=== PATIENT | male | born 1945 | race African-American/Black ===

== ENCOUNTER → 2016-08-31 | Outpatient (CLI) | payer MEDICARE, OTHER ==
[~2016-08-31] MED LIST: ASPIRIN-LOW81 MG PO; ATIVAN1 MG ORAL; AVODART0.5 MG ORAL; BACTRIM-DS1 EA PO; BETOPTIC BOTH EYES; CEPHALEXIN500 MG PO; COLACE100 MG ORAL; COMBIVENT INH14.7 GM INH; COMBIVENT2 PUFFS INH; DEXILANT60 MG ORAL; ENALAPRIL MALEA20 MG ORAL; JANUVIA50 MG ORAL; KLONOPIN0.5 MG ORAL; KLONOPIN0.5 MG PO; LEXAPRO10 MG PO; LEXAPRO20 MG ORAL; LINZESS145 MCG PO; LUMIGAN2.5 ML BOTH EYES; MECLIZINE HCL25 MG ORAL; NIASPAN1000 MG PO; NORVASC10 MG PO; NORVASC5 MG ORAL; PERCOCET 5-3251 EACH ORAL; PLAVIX75 MG PO; QNASL8.7 GM NS; TIMOPTIC 0.5%1 DRO1 BOTH EYES; TOPIRAMATE25 MG ORAL; TRAZODONE HCL150 MG ORAL; TRAZODONE HCL50 MG PO; TRICOR145 MG ORAL; VASOTEC10 MG ORAL; VASOTEC10 MG PO; VICTOZA 2-0.6 MG/0.1 SUBQ; VICTOZA 3-0.6 MG/0.1 SQ; WELCHOL3.75 GM ORAL
--- NOTE | 2016-08-31 12:57 | Diagnostic Imaging Report ---
Indications: Hepatitis C, history of hepatic tumor removal May 2013, followup Technique: Coronal and axial T2-weighted single shot fast spin-echo breath-hold, axial T2-weighted fat-saturated fast spin-echo, 2-D fiesta, dual echo spoiled gradient, and LAVA sequences of the abdomen performed without IV gadolinium administration, latter refused by patient. Findings: Comparison: MRI abdomen without and with gadolinium 10/20/2015 Lack of postgadolinium imaging limits evaluation. Motion artifact degrades images, further limiting evaluation. Small wedge-shaped, peripherally based focus of signal change/parenchymal loss in hepatic segment 8 is unchanged. No new focal areas of signal change are demonstrated within the liver. Circumscribed fluid signal foci again noted in both renal cortices. Bile ducts, gallbladder, pancreas, spleen, adrenal glands, remainder visualized upper abdominal anatomy remain unremarkable in appearance. No abnormally enlarged lymph nodes, other new abnormal masses or fluid collections identified. IMPRESSION: Stable parenchymal scarring hepatic segment 8, evaluation limited by lack of postgadolinium imaging Stable bilateral renal cortical cysts No new abnormality identified
== END | disposition home or self-care (01) ==
LOC: MRI 11:24
DX: B19.20 Unspecified viral hepatitis C without hepatic coma (principal); N28.1 Cyst of kidney, acquired
CPT/HCPCS: 74181

== ENCOUNTER 2016-11-30 12:06 | Outpatient (CLI) | payer MEDICARE, OTHER | END 2016-11-30 13:36 | disposition home or self-care (01) | LOC: CAR 12:06 | DX: I10 Essential (primary) hypertension (principal) | CPT/HCPCS: 93017; 93350 ==

== ENCOUNTER 2017-01-11 10:48 | Outpatient (CLI) | payer MEDICARE, OTHER ==
--- NOTE | 2017-01-11 17:52 | GI Progress Note ---
Assessment/Plan Problems: (1) Hepatitis C ICD Codes: B19.20 - Hepatitis C SNOMED: 01005018 (2) History of colon polyps ICD Codes: Z86.010 - Personal history of colonic polyps SNOMED: 919691858 (3) Abdominal pain (4) Constipation ICD Codes: K59.00 - Constipation SNOMED: 08747793 (5) Dizziness Status: stable Status Narrative Seen with Dr. Smith. Assessment/Plan Hep C Tx in Mar s/p EGD/colon 2015 lab draw: hep C quant recommend Align Anusol HC for internal hemorrhoids Amitiza RTC prn or 3 months. Subjective Subjective constipation >> linzess works, but stool is watery nausea weight gain Objective T 97.8 BP 130/70 P 70 96 RA Laboratory Tests Test 01/11/17 11:00 Hepatitis C Antibody Pending Hepatitis C RNA (PCR) IUs/ml Pending Hepatitis C RNA (PCR) log IUs/ml Pending General Appearance: no apparent distress, alert Cardiovascular: normal rate Respiratory/Chest: normal breath sounds, no respiratory distress Abdominal Exam: normal bowel sounds, non tender, soft Extremities: normal range of motion Jaylin Alves N.P. Jan 11, 2017 17:52
== END 2017-01-11 11:20 | disposition home or self-care (01) ==
LOC: PAN 10:48
DX: B19.20 Unspecified viral hepatitis C without hepatic coma (principal); Z86.010 Personal history of colon polyps; R10.9 Unspecified abdominal pain; K59.00 Constipation, unspecified; R42 Dizziness and giddiness; R11.0 Nausea; R63.5 Abnormal weight gain
CPT/HCPCS: 36415; 87522; G0463; 99211

== ENCOUNTER 2017-06-14 11:09 | Outpatient (CLI) | payer MEDICARE, OTHER ==
[2017-06-14] MEDS ORDERED: AMITIZA24 MCG ORAL (11:20)
[2017-06-14] MEDS ORDERED: VICTOZA 3-0.6 MG/0.1 SQ (11:20)
[2017-06-14 11:24] VITALS: BP 94/56
--- NOTE | 2017-06-14 11:41 | GI Progress Note ---
Assessment/Plan Problems: (1) Hepatitis C ICD Codes: B19.20 - Hepatitis C SNOMED: 19291062 (2) Abdominal pain (3) Dizziness (4) Constipation ICD Codes: K59.00 - Constipation SNOMED: 13546155 (5) Low back pain ICD Codes: M54.5 - Low back pain SNOMED: 467520453 Status: stable Status Narrative Seen with Dr. Smith. Assessment/Plan Hep C Tx in Mar 2006 s/p EGD/colon 2015 lab draw: hep C quant Anusol HC for internal hemorrhoids Amitiza RTC after lab results Subjective Gastrointestinal/Abdominal: Reports: no symptoms Subjective abdominal pain, epigastric - patient eats before going to bed decrease in appetite DM med changed 3 months of Januvia, now Victoza Objective Last 24 Hour Vital Signs Date Time Temp Pulse Resp B/P (MAP) Pulse Ox O2 Delivery O2 Flow Rate FiO2 06/14/17 11:24 97.4 82 18 94/56 95 General Appearance: WD/WN, no apparent distress, alert Cardiovascular: normal rate Respiratory/Chest: normal breath sounds, no respiratory distress Abdominal Exam: normal bowel sounds, non tender, soft Extremities: normal range of motion, non-tender Jaylin Alves N.P. Jun 14, 2017 11:41
[2017-06-14 14:01] LABS: MEAN CORPUSCULAR HEMOGLOBIN 37.4 PG (27.0-31.0); MEAN CORPUSCULAR HGB CONC 33.4 G/DL (32.0-36.0); MEAN CORPUSCULAR VOLUME 112 FL (80-99); MEAN PLATELET VOLUME 5.6 FL (6.5-10.1); PLATELET COUNT 283 K/UL (150-450); RED BLOOD COUNT 3.61 M/UL (4.70-6.10); RED CELL DISTRIBUTION WIDTH 13.1 % (11.6-14.8); WHITE BLOOD COUNT 7.2 K/UL (4.8-10.8)
[2017-06-14 14:13] LABS: ALANINE AMINOTRANSFERASE 17 U/L (12-78); AMYLASE 52 U/L (25-115); ANION GAP 8 mmol/L (5-15); ASPARTATE AMINO TRANSFERASE 17 U/L (15-37); CALCIUM 9.1 MG/DL (8.5-10.1); CARBON DIOXIDE 25 MMOL/L (21-32); CHLORIDE 102 MMOL/L (98-107); CREATININE 1.8 MG/DL (0.55-1.30); LIPASE 251 U/L (73-393); POTASSIUM 4.2 MMOL/L (3.5-5.1); SODIUM 135 MMOL/L (136-145)
[2017-06-14 14:33] LABS: ANISOCYTOSIS 1+; BAND NEUTROPHILS % (MANUAL) 0 % (0-8); BASOPHILS % (MANUAL) 0 % (0-2); EOSINOPHILS % (MANUAL) 1 % (0-3); LYMPHOCYTES % (MANUAL) 32 % (20-45); MACROCYTES 2+; NEUTROPHILS % (MANUAL) 57 % (45-75); PLATELET ESTIMATE ADEQUATE; PLATELET MORPHOLOGY NORMAL; TOTAL CELLS COUNTED 100
[2017-06-20 09:02] LABS: HEPATITIS C QUANT HCV Not Detected IU/mL (.)
== END 2017-06-14 12:05 | disposition home or self-care (01) ==
LOC: PAN 11:09
DX: B19.20 Unspecified viral hepatitis C without hepatic coma (principal); R10.9 Unspecified abdominal pain; R42 Dizziness and giddiness; K59.00 Constipation, unspecified; M54.5 Low back pain; E11.9 Type 2 diabetes mellitus without complications
CPT/HCPCS: 36415; 80053; 82150; 83690; 85007; 85025; 87522; G0463; 99211

== ENCOUNTER 2017-08-02 11:11 | Outpatient (CLI) | payer MEDICARE, OTHER ==
[~2017-08-02 11:11] MED LIST changes: +AMITIZA24 MCG ORAL
[2017-08-02 13:38] VITALS: BP 94/53
--- NOTE | 2017-08-03 15:31 | GI Progress Note ---
Assessment/Plan Problems: (1) Diarrhea ICD Codes: R19.7 - Diarrhea, unspecified SNOMED: 96331163 (2) Hepatitis C ICD Codes: B19.20 - Hepatitis C SNOMED: 66457337 (3) Abdominal pain (4) Dizziness Status: stable Status Narrative Seen with Dr. Smith. Assessment/Plan Hep C s/p Tx >> repeat Hep C quant negative fatty liver gastritis chronic GERD s/p colonoscopy 03/2016 cont plan of care PO hydration RTC if diarrhea persists RTC x 3 months for follow up The patient was seen and examined at bedside and all new and available data was reviewed in the patients chart. I agree with the above findings, impression and plan. (Patient seen earlier today. Signature stamp does not reflect patient encounter time.). - Jasmyn Smith MD Subjective Subjective has had diarrhea x1 day after eating egg salad denies any constipation Objective T 98.1 BP 94/53 74 HR 92 RA WT 241 lbs Blind ambulates with walking stick General Appearance: WD/WN, no apparent distress, alert Cardiovascular: normal rate Respiratory/Chest: normal breath sounds, no respiratory distress Abdominal Exam: normal bowel sounds, non tender, soft Extremities: normal range of motion, non-tender Jaylin Alves N.P. Aug 03, 2017 15:31 DUGLAS SMITH Aug 04, 2017 15:37
== END 2017-08-02 11:45 | disposition home or self-care (01) ==
LOC: PAN 11:11
DX: R19.7 Diarrhea, unspecified (principal); B19.20 Unspecified viral hepatitis C without hepatic coma; R10.9 Unspecified abdominal pain; R42 Dizziness and giddiness; K21.9 Gastro-esophageal reflux disease without esophagitis; K76.0 Fatty (change of) liver, not elsewhere classified; K29.70 Gastritis, unspecified, without bleeding
CPT/HCPCS: 99212

== ENCOUNTER 2017-08-23 14:04 | Inpatient (IN) | payer MEDICARE, OTHER ==
[~2017-08-23] VITALS: Ht 172.7 cm; Wt 109.3 kg
--- NOTE | 2017-08-23 14:45 | Emergency Room Report ---
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 as he had continued pain to the lower chest wall region patient denies any abdominal pain denies any vomiting or diarrhea He mainly complains of the pain Patient also reports that he had some alcoholic drinks over the weekend Denies any focal weakness however the patient is somewhat lethargic with his speech And I do not have any baseline status on this patient Allergies: Coded Allergies: CODEINE (Verified Allergy, Unknown, 05/31/11) Patient History Past Medical History: see triage record Pertinent Family History: none Reviewed Nursing Documentation: PMH: Agreed, PSxH: Agreed Nursing Documentation-PMH Hx Hypertension: Yes Hx Pacemaker: No Hx COPD: Yes Hx Diabetes: Yes Hx Cancer: Yes Hx Gastrointestinal Problems: Yes - liver tumor Hx Neurological Problems: Yes Hx Cerebrovascular Accident: No Hx Transient Ischemic Attacks: No Hx Dementia: No Hx Alzheimer's Disease: No Hx Parkinson's Disease: No Hx Meningitis: No Hx Encephalitis: No Hx Seizures: No Hx Epilepsy: No Hx Multiple Sclerosis: No Hx Cerebral Palsy: No Hx Amyotrophic Lat Sclerosis: No Hx Guillian-[place] Syndrome: No Hx Paralysis: No Hx Peripheral Neuropathy: No Hx Spinal Cord Injury: No Hx Head Trauma: No Hx Traumatic Brain Injury: No Hx Memory Loss: No Hx Concentration Difficulty: No Hx Speech Problem: No Hx Tremors: No Hx Vertigo: No Hx Dizziness: Yes Hx Syncope: No Hx Headaches: Yes Hx Aphasia: No Hx Dysphasia: No Hx Numbness: No Hx Weakness: Yes Hx Fatigue: No Hx Neurologic Surgery: No Hx Brain Shunt: No Review of Systems All Other Systems: limited - Other than the ones mentioned in the history of present illness all others are reviewed however they do stay limited due to the patient's mental status Physical Exam Vital Signs Date Time Temp Pulse Resp B/P (MAP) Pulse Ox O2 Delivery O2 Flow Rate FiO2 08/23/17 14:27 98.4 101 18 58/55 100 Room Air Sp02 EP Interpretation: reviewed, normal, abnormal General Appearance: mild distress Head: normocephalic, atraumatic Eyes: bilateral eye other - trismus ENT: normal pharynx Neck: full range of motion, supple Respiratory: chest non-tender, lungs clear Cardiovascular #1: regular rate, rhythm, no edema Gastrointestinal: non tender, soft Genitourinary: no CVA tenderness Musculoskeletal: normal inspection, other - Patient is tender on palpation and mid back no obvious step-off Neurologic: alert - However patient found to be somewhat lethargic sluggish on his response, responsive, stem assembler III-XII nml as tested Skin: normal color, no rash Lymphatic: no adenopathy Medical Decision Making Diagnostic Impression: Primary Impression: Thoracic spine fracture Additional Impression: Renal insufficiency ER Course Upon presentation the initial blood pressure is reported as 58/53 Blood pressure is repeated at bedside with the patient's nurse Patient's systolic blood pressure is 88 However still significantly low Patient is attempting to provide all his medication was for us patient appears ill Emergently placed on surveillance system monitor and the emergency studies are initiated Patient's blood pressure has improved significantly patient provided with IV hydration CT imaging reveals evidence of thoracic 5 and 6 fractures. given the patient's continued pain patient will require admission and further care Please note that CT imaging had to be done without contrast given the kidney function Labs Test 08/23/17 14:50 08/23/17 15:01 08/23/17 15:30 08/23/17 18:45 Prothrombin Time 11.2 SEC (9.30-11.50) Prothromb Time International Ratio 1.1 (0.9-1.1) Activated Partial Thromboplast Time 20 SEC (23-33) Sodium Level 135 MMOL/L (136-145) Potassium Level 4.1 MMOL/L (3.5-5.1) Chloride Level 100 MMOL/L (98-107) Carbon Dioxide Level 20 MMOL/L (21-32) Anion Gap 15 mmol/L (5-15) Blood Urea Nitrogen 16 mg/dL (7-18) Creatinine 1.8 MG/DL (0.55-1.30) Estimat Glomerular Filtration Rate mL/min (>60) Glucose Level 139 MG/DL (74-106) Lactic Acid Level 2.80 mmol/L (0.66-2.22) 1.40 mmol/L (0.66-2.22) Calcium Level 9.0 MG/DL (8.5-10.1) Total Bilirubin 1.1 MG/DL (0.2-1.0) Direct Bilirubin 0.2 MG/DL (0.0-0.3) Aspartate Amino Transf (AST/SGOT) 48 U/L (15-37) Alanine Aminotransferase (ALT/SGPT) 17 U/L (12-78) Alkaline Phosphatase 31 U/L (46-116) Total Creatine Kinase 353 U/L (26-308) Creatine Kinase MB 1.1 NG/ML (0.0-3.6) Creatine Kinase MB Relative Index 0.3 Troponin I 0.048 ng/mL (0.000-0.056) Pro-B-Type Natriuretic Peptide 179 pg/mL (0-125) Total Protein 7.4 G/DL (6.4-8.2) Albumin 3.7 G/DL (3.4-5.0) Globulin 3.7 g/dL Albumin/Globulin Ratio 1.0 (1.0-2.7) Lipase 79 U/L (73-393) Serum Alcohol 66 mg/dL Urine Color Yellow Urine Appearance Clear Urine pH 6 (4.5-8.0) Urine Specific [place] 1.015 (1.005-1.035) Urine Protein 1+ (NEGATIVE) Urine Glucose (UA) 1+ (NEGATIVE) Urine Ketones 2+ (NEGATIVE) Urine Occult Blood Negative (NEGATIVE) Urine Nitrite Negative (NEGATIVE) Urine Bilirubin Negative (NEGATIVE) Urine Urobilinogen 4 MG/DL (0.0-1.0) Urine Leukocyte Esterase 1+ (NEGATIVE) Urine RBC 0-2 /HPF (0 - 0) Urine WBC 2-4 /HPF (0 - 0) Urine Squamous Epithelial Cells Few /LPF (NONE/OCC) Urine Bacteria Few /HPF (NONE) White Blood Count 6.6 K/UL (4.8-10.8) Red Blood Count 2.75 M/UL (4.70-6.10) Hemoglobin 10.9 G/DL (14.2-18.0) Hematocrit 30.8 % (42.0-52.0) Mean Corpuscular Volume 112 FL (80-99) Mean Corpuscular Hemoglobin 39.7 PG (27.0-31.0) Mean Corpuscular Hemoglobin Concent 35.4 G/DL (32.0-36.0) Red Cell Distribution Width 14.2 % (11.6-14.8) Platelet Count 137 K/UL (150-450) Mean Platelet Volume 7.1 FL (6.5-10.1) Neutrophils (%) (Auto) % (45.0-75.0) Lymphocytes (%) (Auto) % (20.0-45.0) Monocytes (%) (Auto) % (1.0-10.0) Eosinophils (%) (Auto) % (0.0-3.0) Basophils (%) (Auto) % (0.0-2.0) Differential Total Cells Counted 100 Neutrophils % (Manual) 59 % (45-75) Lymphocytes % (Manual) 33 % (20-45) Monocytes % (Manual) 7 % (1-10) Eosinophils % (Manual) 1 % (0-3) Basophils % (Manual) 0 % (0-2) Band Neutrophils 0 % (0-8) Platelet Estimate Decreased Platelet Morphology Normal Hypochromasia 1+ Anisocytosis 1+ Macrocytosis 2+ EKG Diagnostic Results Rate: tachycardiac Rhythm: other ST Segments: no acute changes Rhythm Strip Diag. Results EP Interpretation: yes Rate: 88 Rhythm: NSR, no PVC's, no ectopy Chest X-Ray Diagnostic Results Chest X-Ray Diagnostic Results : Chest X-Ray Ordered: Yes # of Views/Limited/Complete: 1 View Indication: Chest Pain EP Interpretation: Yes Interpretation: no consolidation, no effusion, no pneumothorax, no acute cardiopulmonary disease Impression: No acute disease Electronically Signed by: Socorro Cohen, DO CT/MRI/US Diagnostic Results CT/MRI/US Diagnostic Results : Impression CT chest: Nondisplaced fracture of T5 and T6 bridging osteophytes no retropulsion no pneumothorax Last Vital Signs Date Time Temp Pulse Resp B/P (MAP) Pulse Ox O2 Delivery O2 Flow Rate FiO2 08/23/17 14:27 98.4 101 18 58/55 100 Room Air Status: improved Disposition: ADMITTED INPATIENT Condition: Serious SOCORRO COHEN D.O. Aug 23, 2017 14:44
[2017-08-23 15:00] VITALS: BP 58/55
[2017-08-23 15:14] LABS: APPEARANCE,URINE CLEAR; BILIRUBIN, URINE NEGATIVE (NEGATIVE); GLUCOSE, URINE (UA) 1+ (NEGATIVE); KETONES,URINE 2+ (NEGATIVE); LEUKOCYTE ESTERASE ,URINE 1+ (NEGATIVE); NITRITE,URINE NEGATIVE (NEGATIVE); PH,URINE 6 (4.5-8.0); PROTEIN,URINE 1+ (NEGATIVE); UROBILINOGEN,URINE 4 MG/DL (0.0-1.0)
[2017-08-23 15:20] LABS: COLOR,URINE YELLOW
[2017-08-23 15:25] LABS: ANION GAP 15 mmol/L (5-15); BLOOD UREA NITROGEN 16 mg/dL (7-18); CARBON DIOXIDE 20 MMOL/L (21-32); CHLORIDE 100 MMOL/L (98-107); CREATININE 1.8 MG/DL (0.55-1.30); POTASSIUM 4.1 MMOL/L (3.5-5.1); SODIUM 135 MMOL/L (136-145)
[2017-08-23 15:28] LABS: INR 1.1 (0.9-1.1)
[2017-08-23 15:39] LABS: ALANINE AMINOTRANSFERASE 17 U/L (12-78); ALBUMIN 3.7 G/DL (3.4-5.0); ALKALINE PHOSPHATASE 31 U/L (46-116); ASPARTATE AMINO TRANSFERASE 48 U/L (15-37); BILIRUBIN,TOTAL 1.1 MG/DL (0.2-1.0); CKMB 1.1 NG/ML (0.0-3.6); CREATINE KINASE 353 U/L (26-308)
[2017-08-23 15:46] LABS: BILIRUBIN,DIRECT 0.2 MG/DL (0.0-0.3)
[2017-08-23 15:48] LABS: HEMATOCRIT 30.8 % (42.0-52.0); HEMOGLOBIN 10.9 G/DL (14.2-18.0); MEAN CORPUSCULAR VOLUME 112 FL (80-99); PLATELET COUNT 137 K/UL (150-450); RED BLOOD COUNT 2.75 M/UL (4.70-6.10); RED CELL DISTRIBUTION WIDTH 14.2 % (11.6-14.8); WHITE BLOOD COUNT 6.6 K/UL (4.8-10.8)
[2017-08-23] MEDS ORDERED: Morphine Sulfate 4mg/ml Inj IVP ONE (17:15)
[2017-08-23 19:55] VITALS: BP 118/63
[2017-08-23] MEDS ORDERED: OXYCODONE-ACET1 EAC3 ORAL ×2 (20:24)
[2017-08-23] MEDS ORDERED: VASOTEC10 MG ORAL (20:24)
[2017-08-23] MEDS ORDERED: ENALAPRIL MALEA10 MG ORAL (20:24)
[2017-08-23] MEDS ORDERED: QNASL8.7 GM NS (20:24)
[2017-08-23] MEDS ORDERED: DEXILANT60 MG ORAL (20:24)
[2017-08-23] MEDS ORDERED: BETIMOL5 M2 BOTH EYES (20:24)
[2017-08-23] MEDS ORDERED: COMBIVENT RESPIM4 GM IH (20:24)
[2017-08-23 22:53] VITALS: BP 100/55
[2017-08-24] VITALS: BP 99/67
[2017-08-24] MEDS ORDERED: oxyCODONE HCL/Acetaminophen 5/325mg ORAL PRN (02:15)
[2017-08-24] MEDS ORDERED: Amitiza 24mcg cap ORAL SCH (02:15)
[2017-08-24] MEDS ORDERED: Morphine Sulfate 4mg/ml Inj IVP PRN (02:15)
[2017-08-24 04:00] VITALS: BP 97/60
[2017-08-24 08:00] VITALS: BP 120/72
--- NOTE | 2017-08-24 08:41 | Diagnostic Imaging Report ---
Indication: Chest pain Technique: One view of the chest Comparison: 02/14/2015 Findings: The heart is upper limits normal in size. The medial left hemidiaphragm is not well visualized so retrocardiac parenchymal disease adequately ruled out. The remaining lung pleural spaces are clear. Impression: No definite acute process; retrocardiac consolidation not completely excludable however
[2017-08-24] MEDS ORDERED: Amitiza 24mcg cap ORAL PRN (08:45)
--- NOTE | 2017-08-24 08:49 | History & Physical ---
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 as he had continued pain to the lower chest wall region but denies radiation of pain He mainly complains of the pain and not controlled with outpatient meds Patient also reports that he had some alcoholic drinks over the weekend patient with slow speech scans done and consistent with vertebral fractures Active Medications (reviewed today): PROCTOZONE-HC 2.5 % RECTAL CREAM (HYDROCORTISONE) apply to affected area once daily ESCITALOPRAM OXALATE 10 MG ORAL TABLET (ESCITALOPRAM OXALATE) Take one tablet three times daily TRAZODONE HCL 150 MG ORAL TABLET (TRAZODONE HCL) 1 by mouth nightly at bedtime KLONOPIN 0.5 MG ORAL TABLET (CLONAZEPAM) 1 by mouth twice a day prn AVODART 0.5 MG ORAL CAPSULE (DUTASTERIDE) 1 daily PERCOCET 5-325 MG ORAL TABLET (OXYCODONE-ACETAMINOPHEN) 1 tab daily prn NORVASC 5 MG ORAL TABLET (AMLODIPINE BESYLATE) Take 1 tablet daily QNASL 80 MCG/ACT NASAL AEROSOL SOLUTION (BECLOMETHASONE DIPROP (NASAL)) 1 PUFF BID ISTALOL 0.5 % OPHTHALMIC SOLUTION (TIMOLOL MALEATE) once aday LINZESS 290 MCG ORAL CAPSULE (LINACLOTIDE) 1 po daily ENALAPRIL MALEATE 20 MG ORAL TABLET (ENALAPRIL MALEATE) 1 tab qd TRICOR 145 MG ORAL TABLET (FENOFIBRATE) 1 daily TOPAMAX 25 MG ORAL TABLET (TOPIRAMATE) 1 daily DEXILANT 60 MG ORAL CAPSULE DELAYED RELEASE (DEXLANSOPRAZOLE) 1 daily COMBIVENT RESPIMAT 20-100 MCG/ACT INHALATION AEROSOL SOLUTION (IPRATROPIUM- ALBUTEROL) 1 inhalation q6 Current Allergies (reviewed today): CODEINE (CODEINE SULFATE) (Severe) Past History Past Medical History (reviewed - no changes required): Patient indicates medical history of heart disease, hypertension, type I diabetes. Other medical history includes: renal insufficiency, dyslipidemia, decreased HDL, BPH, degenerative joint disease, blindness, chronic pain, chronic insomnia. THEO. Elevated triglycerides. Vitamin D deficiency. abnormal PET ribidium 03/2010, LIver Tumor, constipation, allergic rhinitis, cough, abdominal pain. HEMORRHOIDS ; DOBUTAMINE ECHO NEGATIVE 2014 hepatitis c (under therapy) Surgical History (reviewed - no changes required): Patient reports surgical history to include: eye surgery-both. Liver tumor removed 03/2016 colonoscopy negative Family History (reviewed - no changes required): Father is . Mother is . The patient indicates family history of hypertension (mother). Other family history includes: Cousin-Diabetes, Mother- Kidney cancer, and uncle ( COLON CANCER) and an aunt with cancer- not sure what kind. tzzfja-diybyseu-[id number] failure; heart disease- Social History (reviewed - no changes required): DON is a disabled.no children ; The patient lives home alone. patient had psychiatric admissions in the past. Risk Factors: Smoked Tobacco Use: Former smoker Cigarettes: Yes -- 1 pack(s) per day, Pack-years: 20 pack years Year started: 1955 Years smoked: 30 Year quit: 1970 Years Since Last Quit: 47 Smokeless Tobacco Use: Never Passive smoke exposure: no Drug use: no HIV high-risk behavior: no Caffeine use: <1 drinks per day Alcohol use: yes Type: once in a while Drinks per day: <1 Seatbelt use: 100 % Sun Exposure: occasionally PHYSICAL 97/60 101 20 98.4 98% WDWN NAD blind clear breath sounds bilaterally without rhonchi or wheeze [id number] without MRG NABS nontender no HSM no CCE unsteady gait pain with ROM Laboratory Tests Test 08/23/17 14:50 08/23/17 15:01 08/23/17 15:30 08/23/17 18:45 Prothrombin Time 11.2 SEC (9.30-11.50) Prothromb Time International Ratio 1.1 (0.9-1.1) Activated Partial Thromboplast Time 20 SEC (23-33) L Sodium Level 135 MMOL/L (136-145) L Potassium Level 4.1 MMOL/L (3.5-5.1) Chloride Level 100 MMOL/L (98-107) Carbon Dioxide Level 20 MMOL/L (21-32) L Anion Gap 15 mmol/L (5-15) Blood Urea Nitrogen 16 mg/dL (7-18) Creatinine 1.8 MG/DL (0.55-1.30) H Estimat Glomerular Filtration Rate mL/min (>60) Glucose Level 139 MG/DL (74-106) H Lactic Acid Level 2.80 mmol/L (0.66-2.22) H 1.40 mmol/L (0.66-2.22) Calcium Level 9.0 MG/DL (8.5-10.1) Total Bilirubin 1.1 MG/DL (0.2-1.0) H Direct Bilirubin 0.2 MG/DL (0.0-0.3) Aspartate Amino Transf (AST/SGOT) 48 U/L (15-37) H Alanine Aminotransferase (ALT/SGPT) 17 U/L (12-78) Alkaline Phosphatase 31 U/L (46-116) L Total Creatine Kinase 353 U/L (26-308) H Creatine Kinase MB 1.1 NG/ML (0.0-3.6) Creatine Kinase MB Relative Index 0.3 Troponin I 0.048 ng/mL (0.000-0.056) Pro-B-Type Natriuretic Peptide 179 pg/mL (0-125) H Total Protein 7.4 G/DL (6.4-8.2) Albumin 3.7 G/DL (3.4-5.0) Globulin 3.7 g/dL Albumin/Globulin Ratio 1.0 (1.0-2.7) Lipase 79 U/L (73-393) Serum Alcohol 66 mg/dL Urine Color Yellow Urine Appearance Clear Urine pH 6 (4.5-8.0) Urine Specific [place] 1.015 (1.005-1.035) Urine Protein 1+ (NEGATIVE) H Urine Glucose (UA) 1+ (NEGATIVE) H Urine Ketones 2+ (NEGATIVE) H Urine Occult Blood Negative (NEGATIVE) Urine Nitrite Negative (NEGATIVE) Urine Bilirubin Negative (NEGATIVE) Urine Urobilinogen 4 MG/DL (0.0-1.0) H Urine Leukocyte Esterase 1+ (NEGATIVE) H Urine RBC 0-2 /HPF (0 - 0) H Urine WBC 2-4 /HPF (0 - 0) Urine Squamous Epithelial Cells Few /LPF (NONE/OCC) Urine Bacteria Few /HPF (NONE) White Blood Count 6.6 K/UL (4.8-10.8) Red Blood Count 2.75 M/UL (4.70-6.10) L Hemoglobin 10.9 G/DL (14.2-18.0) L Hematocrit 30.8 % (42.0-52.0) L Mean Corpuscular Volume 112 FL (80-99) H Mean Corpuscular Hemoglobin 39.7 PG (27.0-31.0) H Mean Corpuscular Hemoglobin Concent 35.4 G/DL (32.0-36.0) Red Cell Distribution Width 14.2 % (11.6-14.8) Platelet Count 137 K/UL (150-450) L Mean Platelet Volume 7.1 FL (6.5-10.1) Neutrophils (%) (Auto) % (45.0-75.0) Lymphocytes (%) (Auto) % (20.0-45.0) Monocytes (%) (Auto) % (1.0-10.0) Eosinophils (%) (Auto) % (0.0-3.0) Basophils (%) (Auto) % (0.0-2.0) Differential Total Cells Counted 100 Neutrophils % (Manual) 59 % (45-75) Lymphocytes % (Manual) 33 % (20-45) Monocytes % (Manual) 7 % (1-10) Eosinophils % (Manual) 1 % (0-3) Basophils % (Manual) 0 % (0-2) Band Neutrophils 0 % (0-8) Platelet Estimate Decreased L Platelet Morphology Normal Hypochromasia 1+ Anisocytosis 1+ Macrocytosis 2+ IMPRESSION S/P FALL Etoh use thoracic verterbal fractures intractable pain CKD COPD blindness diabetes PLAN pain control pain management resume meds monitor blood sugar may need short term rehab impression, plan, and exam edited and reviewed in detail care discussed with TREESA FU Aug 24, 2017 08:49
[2017-08-24] MEDS: Aspirin EC 81mg tab ORAL SCH (08:51)
[2017-08-24] MEDS: Topiramate 25mg tab ORAL SCH ×2 (08:52→17:35)
--- NOTE | 2017-08-24 08:58 | Diagnostic Imaging Report ---
Clinical Indication: Posterior chest pain, status post fall Technique: Spiral acquisitions obtained through the chest. No IV contrast utilized, due to renal insufficiency. Multiplanar reconstructions generated. Total dose length product 1070.82 mGycm. CTDIvol(s) 28.55 mGy. Dose reduction achieved using automated exposure control Comparison: none Findings: There is image degradation due to respiratory motion artifact. A lucency is seen through the bridging osteophytes at T5-6. This could represent a fracture, but could also just represent unfused osteophytes. There is no surrounding soft tissue swelling. No other evidence of acute fracture or significant soft tissue contusion. There are degenerative changes of the thoracic spine The lungs are grossly clear. No infiltrates, effusions, masses, or nodules. There is a 3 mm focus of pleural thickening in the periphery of the left lung and a band of prominent pleural fat in the left midlung periphery. No pneumothorax The heart is upper limits of normal in size. There is abundant pericardial and mediastinal fat. There are coronary artery calcifications. No mediastinal or hilar mass or adenopathy. No axillary or chest wall mass or adenopathy. The thyroid is unremarkable. Limited views of the upper abdominal anatomy demonstrates low hepatic attenuation consistent with fatty change. Impression: Possible fracture bridging osteophytes at T5-6. No acute process otherwise. No other evidence of acute bony trauma, pneumothorax, pulmonary or soft tissue contusion Fatty liver Other incidental findings as described This agrees with the preliminary interpretation provided overnight by [facility] teleradiology service. The CT scanner at [facility] is accredited by the [employer] [place] [employer] and the scans are performed using protocols designed to limit radiation exposure to as low as reasonably achievable to attain images of sufficient resolution adequate for diagnostic evaluation.
[2017-08-24 12:00] VITALS: BP 121/70
[2017-08-24] MEDS: VICTOZA 18 MG/3 ML SUBQ SCH (12:50)
[2017-08-24] MEDS: Morphine Sulfate 4mg/ml Inj IVP PRN (14:58)
[2017-08-24 16:00] VITALS: BP 103/66
--- NOTE | 2017-08-24 16:57 | Consultation ---
History of Present Illness General Date patient seen: Aug 24, 2017 Chief Complaint: Present Illness Allergies: Coded Allergies: CODEINE (Verified Allergy, Unknown, 05/31/11) Medication History Scheduled Amlodipine Besylate (Norvasc), 5 MG ORAL DAILY, (Reported) Aspirin (Aspirin EC), 81 MG PO DAILY, (Reported) Beclomethasone Dipropionate (Qnasl), 1 SPR NS BEDTIME, (Reported) Bimatoprost (Lumigan), 1 DROP BOTH EYES BEDTIME, (Reported) Clonazepam* (Klonopin*), 0.5 MG ORAL QHS, (Reported) Colesevelam Hcl (Welchol), 1 PKT ORAL QHS, (Reported) Dexlansoprazole (Dexilant), 60 MG ORAL DAILY, (Reported) Enalapril Maleate* (Vasotec*), 10 MG ORAL DAILY, (Reported) Escitalopram Oxalate* (Lexapro*), 10 MG ORAL QHS, (Reported) Ipratropium/Albuterol Sulfate (Combivent Respimat Inhal [place]), 2 PUFFS IH BID, (Reported) Liraglutide (Victoza 3-Víctor), 0.6 MG SQ DAILY, (Reported) Lubiprostone (Amitiza*), 24 MCG ORAL PRN, (Reported) Timolol (Betimol), 1 DROP BOTH EYES BEDTIME, (Reported) Topiramate* (Topamax*), 25 MG ORAL TWICE A DAY, (Reported) Trazodone* (Trazodone*), 150 MG ORAL BEDTIME, (Reported) Scheduled PRN Oxycodone Hcl/Acetaminophen 5-325* (Oxycodone-Acetaminophen 5-325*), 0.5 TAB ORAL Q6H PRN for For Pain, (Reported) Discontinued Medications Betaxolol HCl (Betoptic S), 1 DROP BOTH EYES BID, (Reported) Discontinued Reason: Pt stopped taking med Patient History Healthcare decision maker PT Resuscitation status Full Code Advanced Directive on File Physical Exam Last 24 Hour Vital Signs Date Time Temp Pulse Resp B/P (MAP) Pulse Ox O2 Delivery O2 Flow Rate FiO2 08/24/17 12:00 98.2 85 18 121/70 97 Room Air 08/24/17 08:52 120/72 08/24/17 08:52 82 120/72 08/24/17 08:00 98.1 99 20 120/72 98 Room Air 08/24/17 08:00 90 08/24/17 04:00 98.1 101 20 97/60 98 Room Air 08/24/17 04:00 98 08/24/17 00:00 98.2 89 18 99/67 99 Room Air 08/24/17 00:00 130 08/23/17 22:54 98.4 116 18 118/63 100 Room Air 08/23/17 22:53 98.4 89 18 100/55 100 Room Air 08/23/17 19:55 98.4 116 18 118/63 100 Room Air Intake and Output 08/23/17 08/24/17 19:00 07:00 Intake Total 0 ml 200 ml Output Total 0 ml Balance 0 ml 200 ml Intake Oral 0 ml 200 ml Output Urine Total 0 ml Laboratory Tests Test 08/23/17 18:45 Lactic Acid Level 1.40 mmol/L (0.66-2.22) Height (Feet): 5 Height (Inches): 8.00 Weight (Pounds): 241 Medications Current Medications Medications (Trade) Dose Ordered Sig/Janeth Route PRN Reason Start Time Stop Time Status Last Admin Dose Admin Amlodipine Besylate (Norvasc) 5 mg DAILY ORAL 08/24/17 09:00 09/23/17 08:59 08/24/17 08:52 Aspirin (Ecotrin) 81 mg DAILY ORAL 08/24/17 09:00 09/23/17 08:59 08/24/17 08:51 Clonazepam (KlonoPIN) 0.5 mg QHS ORAL 08/24/17 21:00 08/31/17 20:59 Enalapril Maleate (Vasotec) 10 mg DAILY ORAL 08/24/17 09:00 09/23/17 08:59 08/24/17 08:52 Heparin Sodium (Porcine) (Heparin 5000 units/ml) 5,000 units EVERY 12 HOURS SUBQ 08/24/17 21:00 09/23/17 20:59 Lubiprostone (Amitiza) 24 mcg DAILY PRN ORAL CONSTIPATION 08/24/17 08:45 09/23/17 08:44 Morphine Sulfate (Morphine Sulfate) 4 mg Q4H PRN IVP Severe Pain (Pain Scale 7-10) 08/24/17 07:30 08/31/17 02:14 08/24/17 14:58 Oxycodone/ Acetaminophen (Percocet 5-325) 0.5 tab Q6H PRN ORAL Moderate Pain (Pain Scale 4-6) 08/24/17 02:15 08/31/17 02:14 Patient Own Medication (Patient's Own Med) 1 ea DAILY SUBQ 08/24/17 13:00 09/23/17 12:59 08/24/17 12:50 Topiramate (Topamax) 25 mg TWICE A DAY ORAL 08/24/17 09:00 09/23/17 08:59 08/24/17 08:52 Trazodone HCl (Desyrel) 150 mg BEDTIME ORAL 08/24/17 21:00 09/23/17 20:59 Assessment/Plan Assessment/Plan (1) Lumbago (2) Lumbar sprain (3) Intractable back pain (4) S/p fall (5) Thoracic vertebral fracture seen dictated. CHRISTOPHE ABRAHAM Aug 24, 2017 16:57
[2017-08-24] MEDS ORDERED: Cyclobenzaprine 10mg Tab ORAL PRN (17:15)
--- NOTE | 2017-08-24 17:18 | Cardiology Report ---
APPROVED REPORT EKG Measurement Heart [id number] Normal sinus rhythm with sinus arrhythmia Low voltage QRS Borderline ECG
[2017-08-24] MEDS ORDERED: LORazepam Inj 2mg/ml 1ml IV PRN (17:30)
[2017-08-24 20:00] VITALS: BP 110/57
[2017-08-24] MEDS: TraZODone 50mg tab ORAL SCH (21:24)
[2017-08-24] MEDS: clonazePAM 0.5mg tab ORAL SCH (21:24)
[2017-08-24] MEDS: Heparin 5000 units/ml inj SUBQ SCH (21:26)
[2017-08-25] VITALS: BP 111/63
[2017-08-25 04:00] VITALS: BP 112/65
--- NOTE | 2017-08-25 04:16 | Consultation ---
DATE OF CONSULTATION: 08/24/2017 PAIN MANAGEMENT CONSULTATION CONSULTING PHYSICIAN: Cecilio Michaels M.D. ATTENDING/REFERRING PHYSICIAN: Russ Renee M.D. PHYSICIAN [place] BACK FEEDER: Tye Clemens CHIEF COMPLAINT: Back pain. HISTORY OF PRESENT ILLNESS: This is a 72-year-old male, who is being seen on the telemetry floor of [facility] for initial comprehensive pain management consultation. The patient reports that he has been having back pain in the mid back and low back, it is acute and constant, rating it 9/10. Describing the pain as a sharp, stabbing pain. It was increased with movement and nothing has been helping to relieve his pain. Pain exacerbated with fall due to slipping, landing on his back and had been drinking alcohol, vodka, admitted into the hospital. CT scan of the chest was done showing possible fracture bridging osteophytes at C5-C6. Due to this, we were consulted so that the patient would have adequate pain control while here in the hospital. PAST MEDICAL HISTORY: Hypertension, diabetes mellitus, legally blind, and hepatitis C. PAST SURGICAL HISTORY: Liver biopsy. SOCIAL HISTORY: He has a history of smoking tobacco and he is a drinker of alcohol. Denies IV drug abuse. ALLERGIES: Codeine. REVIEW OF SYSTEMS: Denies rash, fever, chills, sweating, dizziness, drowsiness, sore throat, or change in his weight. No shortness of breath, chest pain, palpitations, or cough. No nausea, vomiting, diarrhea, or blood in the stool or urine. No bowel or bladder incontinence. No dysuria. He is complaining of back pain. PHYSICAL EXAMINATION: GENERAL: Alert, awake, and oriented. VITAL SIGNS: Blood pressure 121/70, heart rate is 85, oxygen saturation is 97%, respiratory rate is 18, and temperature is 98.2 degrees Fahrenheit. NECK: Range of motion is full in all directions. No tenderness to paracervical muscles. No adenopathy. LUNGS: Decreased breath sounds bilaterally. HEART: Regular. ABDOMEN: Obese. BACK: Range of motion is decreased in flexion and extension with tenderness to paraspinal muscles, trapezius, and rhomboid muscles. EXTREMITIES: Upper extremity range of motion is full in all directions. Motor is intact. No cyanosis. No clubbing. No edema. Sensory is intact. Reflexes are not obtainable. No adenopathy. Lower extremity range of motion is decreased due to the patient's pain and condition. No cyanosis. No clubbing. No edema. Sensory is intact. Reflexes are not obtainable. No adenopathy. ASSESSMENT AND PLAN: This is a 72-year-old male with lumbago, lumbar strain, thoracic vertebral fracture, intractable back pain, status post fall. The patient will be continued on morphine 4 mg IV every four hours as needed for severe pain as well as Percocet 5/325 mg half a tablet every six hours as needed for moderate pain. He will be started on Lidoderm patch, to be applied to back at the site of the pain, 12 hours on and 12 hours off, as well as Flexeril 10 mg tablet every eight hours as needed for muscle spasm. We will order an MRI of the thoracic and lumbar spine to rule out further pathology in the lower back and thoracic area. The patient was discussed with Dr. Michaels and Dr. Michaels concurred. We will follow the patient. Thank you very much for the courtesy of this consultation. Cecilio Michaels M.D. ILANA Clemens DR: JENNIFER JOB#: [id number] CC:
--- NOTE | 2017-08-25 05:32 | Consultation ---
DATE OF CONSULTATION: CARDIOLOGY CONSULTATION CONSULTING PHYSICIAN: Kam De Luna M.D. REQUESTING PHYSICIAN: Russ Renee M.D. REASON FOR CONSULTATION: Arrhythmia. HISTORY OF PRESENT ILLNESS: This is an male, who presented to the hospital with back pain after sustaining several falls. He denied loss of consciousness. He has had some slow speech and difficulty ambulating due to some alcoholic intake over the weekend. Vertebral compression fractures were noted. Pain control was initiated. Today, the patient developed some episodes of asymptomatic junctional tachycardia, prompting this consultation. I have reviewed the strips. The patient has had some episodes of ectopic atrial rhythms and atrial tachycardia, all asymptomatic. PAST MEDICAL HISTORY: Hemorrhoids, allergic rhinitis, hepatitis C, history of a tumor, status post resection, prostatic hypertrophy, hypertension. SOCIAL HISTORY: Negative for substance abuse. He does have a heavy alcohol intake and smokes one pack of cigarettes daily for over 20 years. FAMILY HISTORY: Notable for heart disease and kidney disease. REVIEW OF SYSTEMS: No complaints of chest pain. No loss of consciousness. He had negative dobutamine echo in 2014. No history of endocarditis or rheumatic heart disease. No history of asthma. No history of blood clotting. PHYSICAL EXAMINATION: VITAL SIGNS: Blood pressure is 110/57, pulse 109, respiratory rate 20, and afebrile. NECK: Supple. LUNGS: Clear. CARDIAC: Regular rhythm. Rapid rate. Normal S1 and S2. There is a fourth heart sound. ABDOMEN: Soft. EXTREMITIES: No edema. LABORATORY DATA: Troponin levels are 0.048 and 0.063 respectively. IMPRESSION: 1. Paroxysmal atrial tachyarrhythmias with episodes of ectopic atrial rhythm. 2. Lactic acidosis, resolved. 3. Hypovolemia and dehydration with acute kidney injury, resolving. 4. Blindness. 5. Alcohol use. 6. Falls. 7. Thoracic vertebral fractures with intractable pain. 8. Chronic obstructive pulmonary disease. 9. Type 2 diabetes mellitus. 10. Acute myocardial ischemia, asymptomatic. PLAN: 1. Continue cardiac monitoring. 2. Check thyroid panel and electrolytes. 3. Serial troponin levels. 4. No current indication for antiarrhythmic therapy or anticoagulation in this setting. Kam De Luna M.D. DR: Umberto JOB#: [id number] CC:
[2017-08-25 08:00] VITALS: BP 129/62
--- NOTE | 2017-08-25 08:17 | General Progress Note ---
Assessment/Plan Assessment/Plan IMPRESSION S/P FALL Etoh use thoracic verterbal fractures intractable pain CKD COPD blindness diabetes abnormal rhythm elevated troponin PLAN cards recommendations pain control pain management resume meds monitor blood sugar follow up with consultants may need short term rehab impression, plan, and exam edited and reviewed in detail care discussed with RN Subjective Allergies: Coded Allergies: CODEINE (Verified Allergy, Unknown, 05/31/11) Subjective pain better overall had change in rhythm troponin elevated cards appreciated Objective Last 24 Hour Vital Signs Date Time Temp Pulse Resp B/P (MAP) Pulse Ox O2 Delivery O2 Flow Rate FiO2 08/25/17 04:12 79 08/25/17 04:00 98.9 82 20 112/65 97 Room Air 08/25/17 00:00 98.0 67 20 111/63 99 Room Air 08/24/17 23:51 71 08/24/17 20:00 98.2 109 20 110/57 98 Room Air 08/24/17 19:54 114 08/24/17 16:00 87 08/24/17 16:00 98.2 85 18 103/66 97 Room Air 08/24/17 12:00 82 08/24/17 12:00 98.2 85 18 121/70 97 Room Air 08/24/17 08:52 120/72 08/24/17 08:52 82 120/72 Intake and Output 08/24/17 08/25/17 19:00 07:00 Intake Total 840 ml Output Total 600 ml 250 ml Balance 240 ml -250 ml Intake Oral 840 ml Output Urine Total 600 ml 250 ml # Voids 4 Laboratory Tests 08/24/17 19:47: Troponin I 0.063H Height (Feet): 5 Height (Inches): 8.00 Weight (Pounds): 241 Objective WDWN NAD blind clear breath sounds bilaterally without rhonchi or wheeze [id number] without MRG NABS nontender no HSM no CCE unsteady gait pain with ROM TERESA HSU Aug 25, 2017 08:17
[2017-08-25] MEDS: Topiramate 25mg tab ORAL SCH ×2 (08:45→17:46)
[2017-08-25] MEDS: Aspirin EC 81mg tab ORAL SCH (08:45)
[2017-08-25] MEDS: Heparin 5000 units/ml inj SUBQ SCH ×2 (08:47→21:28)
[2017-08-25] MEDS: VICTOZA 18 MG/3 ML SUBQ SCH (08:47)
--- NOTE | 2017-08-25 08:51 | General Progress Note ---
Assessment/Plan Assessment/Plan (1) Lumbago (2) Lumbar sprain (3) Intractable back pain (4) S/p fall (5) Thoracic vertebral fracture Patient to be continued on Percocet and Morphine MRI pending D/w Dr. Michaels and he concurred. Subjective Date patient seen: Aug 25, 2017 Time patient seen: 07:30 - am Allergies: Coded Allergies: CODEINE (Verified Allergy, Unknown, 05/31/11) Subjective REVIEW OF SYSTEMS: Denies rash, fever, chills, sweating, dizziness, drowsiness, sore throat, or change in his weight. No shortness of breath, palpitations, or cough. No nausea, vomiting, diarrhea, or blood in the stool or urine. No bowel or bladder incontinence. No dysuria. He is complaining of back pain and chest pain, SUBJECTIVE: Pain has been reduced. MRI is pending to be done later today. He has c/o chest pain being seen by clinical rn manager. Objective Last 24 Hour Vital Signs Date Time Temp Pulse Resp B/P (MAP) Pulse Ox O2 Delivery O2 Flow Rate FiO2 08/25/17 08:45 129/62 08/25/17 08:45 93 129/62 08/25/17 08:00 97.5 93 19 129/62 98 Room Air 08/25/17 04:12 79 08/25/17 04:00 98.9 82 20 112/65 97 Room Air 08/25/17 00:00 98.0 67 20 111/63 99 Room Air 08/24/17 23:51 71 08/24/17 20:00 98.2 109 20 110/57 98 Room Air 08/24/17 19:54 114 08/24/17 16:00 87 08/24/17 16:00 98.2 85 18 103/66 97 Room Air 08/24/17 12:00 82 08/24/17 12:00 98.2 85 18 121/70 97 Room Air 08/24/17 08:52 120/72 08/24/17 08:52 82 120/72 Intake and Output 08/24/17 08/25/17 19:00 07:00 Intake Total 840 ml Output Total 600 ml 250 ml Balance 240 ml -250 ml Intake Oral 840 ml Output Urine Total 600 ml 250 ml # Voids 4 Laboratory Tests 08/24/17 19:47: Troponin I 0.063H Height (Feet): 5 Height (Inches): 8.00 Weight (Pounds): 241 Objective GENERAL: Alert, awake, and oriented. NECK: Range of motion is full in all directions. No tenderness to paracervical muscles. No adenopathy. LUNGS: Decreased breath sounds bilaterally. HEART: Regular. ABDOMEN: Obese. EXTREMITIES: No clubbing. No edema. NEURO: No changes. CHRISTOPHE ABRAHAM Aug 25, 2017 08:51
[2017-08-25] MEDS: Morphine Sulfate 4mg/ml Inj IVP PRN ×2 (11:01→17:50)
[2017-08-25 11:04] LABS: ALANINE AMINOTRANSFERASE 24 U/L (12-78); ALBUMIN 3.5 G/DL (3.4-5.0); ALKALINE PHOSPHATASE 28 U/L (46-116); ANION GAP 8 mmol/L (5-15); ASPARTATE AMINO TRANSFERASE 50 U/L (15-37); BILIRUBIN,TOTAL 0.7 MG/DL (0.2-1.0); BLOOD UREA NITROGEN 14 mg/dL (7-18); CALCIUM 9.3 MG/DL (8.5-10.1); CARBON DIOXIDE 24 MMOL/L (21-32); CHLORIDE 104 MMOL/L (98-107); CREATININE 1.6 MG/DL (0.55-1.30); SODIUM 136 MMOL/L (136-145)
[2017-08-25 12:00] VITALS: BP 113/67
[2017-08-25 16:00] VITALS: BP 100/67
--- NOTE | 2017-08-25 19:39 | Diagnostic Imaging Report ---
Indication: Reason For Exam: PAIN Technique: Sagittal T1 and T2 fast spin echo, sagittal STIR, axial T1 and T2 fast spin-echo images of the lumbar spine Comparison: Correlation made to CT of the chest 08/23/2017 Findings: There are 5 lumbar-type nonrib-bearing vertebral bodies, assuming 12 paired ribs. There is no abnormal lumbar curvature. Tip of the pelvis terminates at the level of T12-L1. There is no focal cord signal abnormality. Bone marrow signal is homogeneous and within normal limits. There is no evidence of acute fracture or traumatic malalignment. No evidence of spondylolisthesis. There is mild multilevel degenerative change with large anterior osteophytes, multilevel disc desiccation and small disc osteophyte complexes. At T12-L1: There is no evidence of central calcinosis or foraminal narrowing. At L1-L2: Mild disc osteophyte complex and ligamentum flavum hypertrophy results in moderate central canal stenosis. There is no significant foraminal narrowing. At L2-L3: There is no significant central canal stenosis or foraminal narrowing. At L3-L4: Disc osteophyte complex and hypertrophy of the ligamentum flavum results in mild central canal stenosis and mild bilateral foraminal narrowing. At L4-L5: Disc osteophyte complex results in mild central canal stenosis and bilateral foraminal narrowing. At L5-S1 there is mild central canal stenosis and possible mild left foraminal narrowing. Abdominal aorta is normal in caliber. Multiple T2 hyperintense well-circumscribed lesions noted in the left kidney likely representing cysts. IMPRESSION: No evidence of acute fracture or traumatic malalignment. Mild multilevel degenerative change of the lumbar spine.
[2017-08-25 20:00] VITALS: BP 141/77
[2017-08-25] MEDS: clonazePAM 0.5mg tab ORAL SCH (21:25)
[2017-08-25] MEDS: TraZODone 50mg tab ORAL SCH (21:29)
[2017-08-26] VITALS (7 sets, daily range): BP systolic 102–122; BP diastolic 58–85
--- NOTE | 2017-08-26 03:45 | Progress Note ---
DATE: 08/25/2017 CARDIOLOGY PROGRESS NOTE SUBJECTIVE: The patient has no new complaints. Monitored rhythm with asymptomatic episodes of atrial arrhythmias that are nonsustained. OBJECTIVE: VITAL SIGNS: Blood pressure 112/65, pulse 82, and respirations 20. LUNGS: Clear. CARDIAC: Regular. ABDOMEN: Soft. EXTREMITIES: No edema. LABORATORY DATA: Troponin level 0.041. A 2D echocardiogram revealed normal ejection fraction with mild concentric hypertrophy. IMPRESSION: 1. Status post mechanical fall. 2. Alcohol use 3. Acute thoracic vertebral fractures with intractable pain. 4. Troponin elevation of no clinical significance. 5. Atrial arrhythmias of no clinical significance. 6. Chronic obstructive pulmonary disease, stable. 7. Diabetes, on sliding scale of insulin. PLAN: 1. Continue cardiac monitoring. 2. Pain control. 3. DVT prophylaxis. 4. Anti-platelet therapy. 5. Check lipid panel. LDL goal less than 100. 6. With low BP range, will try to consolidate anti-HTN meds. Kam De Luna M.D. DR: ANUP JOB#: [id number] CC: RALPH
--- NOTE | 2017-08-26 06:32 | Cardiology Report ---
APPROVED REPORT EXAM: Two-dimensional and M-mode echocardiogram with Doppler and color Doppler. INDICATION Arrhythmia M-Mode DIMENSIONS IVSd1.0 (0.7-1.1cm)Left Atrium (MM)3.0 (1.6-4.0cm) LVDd5.4 (3.5-5.6cm)Aortic Root3.2 (2.0-3.7cm) PWd1.0 (0.7-1.1cm)Aortic Cusp Exc.2.0 (1.5-2.0cm) LVDs3.8 (2.5-4.0cm) PWs1.4 cm Normal left ventricular chamber size, systolic function and wall motion. Left ventricular ejection fraction estimated to be 60-65%. No evidence of left ventricular hypertrophy. Small posterior and anterior pericardial effusion. Mild bi-atrial enlargement by 2D. Focal aortic valve sclerosis with adequate cusp excursion. Thickened mitral valve leaflets with normal excursion. Mild mitral annulus and aortic root calcification. Pulmonic valve not well visualized. Normal tricuspid valve structure. IVC is not obtainable. A color flow and spectral Doppler study was performed and revealed: No aortic regurgitation. No mitral regurgitation. Mitral diastolic velocities suggest reduced left ventricular relaxation c/w diastolic dysfunction grade 1. No tricuspid regurgitation.
--- NOTE | 2017-08-26 08:18 | General Progress Note ---
Assessment/Plan Assessment/Plan IMPRESSION S/P FALL Etoh use thoracic verterbal fractures intractable pain CKD COPD blindness diabetes abnormal rhythm elevated troponin PLAN cards recommendations noted pain control pain management noted meds monitor blood sugar follow up with consultants may need short term rehab impression, plan, and exam edited and reviewed in detail care discussed with RN Subjective Allergies: Coded Allergies: CODEINE (Verified Allergy, Unknown, 05/31/11) Subjective pain better overall had change in rhythm troponin elevated lumbar MRI cards appreciated Objective Last 24 Hour Vital Signs Date Time Temp Pulse Resp B/P (MAP) Pulse Ox O2 Delivery O2 Flow Rate FiO2 08/26/17 04:00 99.3 20 122/71 95 Room Air 08/26/17 04:00 87 08/26/17 00:00 99.0 20 120/79 96 Room Air 08/26/17 00:00 85 08/25/17 20:00 85 08/25/17 20:00 98.8 20 141/77 97 Room Air 08/25/17 16:00 84 08/25/17 16:00 98.1 80 20 100/67 97 Room Air 08/25/17 12:00 97.9 88 22 113/67 96 Room Air 08/25/17 12:00 96 08/25/17 08:45 129/62 08/25/17 08:45 93 129/62 Intake and Output 08/25/17 08/26/17 19:00 07:00 Intake Total 940 ml 240 ml Balance 940 ml 240 ml Intake Oral 740 ml 240 ml IV Total 200 ml # Voids 3 1 # Bowel Movements 1 2 Laboratory Tests 08/25/17 09:40: Sodium Level 136, Potassium Level 4.0, Chloride Level 104, Carbon Dioxide Level 24, Anion Gap 8, Blood Urea Nitrogen 14, Creatinine 1.6H, Estimat Glomerular Filtration Rate , Glucose Level 117H, Calcium Level 9.3, Magnesium Level 1.5L, Total Bilirubin 0.7, Aspartate Amino Transf (AST/SGOT) 50H, Alanine Aminotransferase (ALT/SGPT) 24, Alkaline Phosphatase 28L, Troponin I 0.041, Pro- B-Type Natriuretic Peptide 125, Total Protein 7.0, Albumin 3.5, Globulin 3.5, Albumin/Globulin Ratio 1.0, Thyroid Stimulating Hormone (TSH) 1.142 Height (Feet): 5 Height (Inches): 8.00 Weight (Pounds): 241 Objective WDWN NAD blind clear breath sounds bilaterally without rhonchi or wheeze [id number] without MRG NABS nontender no HSM no CCE unsteady gait pain with ROM TERESA HSU Aug 26, 2017 08:18
--- NOTE | 2017-08-26 09:20 | General Progress Note ---
Assessment/Plan Assessment/Plan (1) Lumbago (2) Lumbar sprain (3) Intractable back pain (4) S/p fall (5) Thoracic vertebral fracture (6) Lumbar spinal stenosis Patient to be continued on Percocet and Morphine MRI thoracic spine pending. Recommend spinal surgeon consultation D/w Dr. Michaels and he concurred. Subjective Date patient seen: Aug 26, 2017 Time patient seen: 08:30 - am Allergies: Coded Allergies: CODEINE (Verified Allergy, Unknown, 05/31/11) Subjective REVIEW OF SYSTEMS: Denies rash, fever, chills, sweating, dizziness, drowsiness, sore throat, or change in his weight. No shortness of breath, palpitations, or cough. No nausea, vomiting, diarrhea, or blood in the stool or urine. No bowel or bladder incontinence. No dysuria. He is complaining of back pain and chest pain, SUBJECTIVE: Pt is sitting up in bed and reports pain is at a moderate level and increases with movement. However it has been tolerated on the Morphine and Percocet. MRI of Lumbar spine reviewed and thoracic spine pending results. Objective Last 24 Hour Vital Signs Date Time Temp Pulse Resp B/P (MAP) Pulse Ox O2 Delivery O2 Flow Rate FiO2 08/26/17 08:00 96.2 92 18 120/85 95 08/26/17 04:00 99.3 20 122/71 95 Room Air 08/26/17 04:00 87 08/26/17 00:00 99.0 20 120/79 96 Room Air 08/26/17 00:00 85 08/25/17 20:00 85 08/25/17 20:00 98.8 20 141/77 97 Room Air 08/25/17 16:00 84 08/25/17 16:00 98.1 80 20 100/67 97 Room Air 08/25/17 12:00 97.9 88 22 113/67 96 Room Air 08/25/17 12:00 96 Intake and Output 08/25/17 08/26/17 19:00 07:00 Intake Total 940 ml 240 ml Balance 940 ml 240 ml Intake Oral 740 ml 240 ml IV Total 200 ml # Voids 3 1 # Bowel Movements 1 2 Laboratory Tests 08/25/17 09:40: Sodium Level 136, Potassium Level 4.0, Chloride Level 104, Carbon Dioxide Level 24, Anion Gap 8, Blood Urea Nitrogen 14, Creatinine 1.6H, Estimat Glomerular Filtration Rate , Glucose Level 117H, Calcium Level 9.3, Magnesium Level 1.5L, Total Bilirubin 0.7, Aspartate Amino Transf (AST/SGOT) 50H, Alanine Aminotransferase (ALT/SGPT) 24, Alkaline Phosphatase 28L, Troponin I 0.041, Pro- B-Type Natriuretic Peptide 125, Total Protein 7.0, Albumin 3.5, Globulin 3.5, Albumin/Globulin Ratio 1.0, Thyroid Stimulating Hormone (TSH) 1.142 Height (Feet): 5 Height (Inches): 8.00 Weight (Pounds): 241 Objective GENERAL: Alert, awake, and oriented. NECK: Range of motion is full in all directions. No tenderness to paracervical muscles. No adenopathy. LUNGS: Decreased breath sounds bilaterally. HEART: Regular. ABDOMEN: Obese. EXTREMITIES: No clubbing. No edema. NEURO: No changes. Procedure: MRI L Spine no Contrast Findings: There are 5 lumbar-type nonrib-bearing vertebral bodies, assuming 12 paired ribs. There is no abnormal lumbar curvature. Tip of the conus terminates at the level of T12-L1. There is no focal cord signal abnormality. Bone marrow signal is homogeneous and within normal limits. There is no evidence of acute fracture or traumatic malalignment. No evidence of spondylolisthesis. There is multilevel degenerative change with large anterior osteophytes, multilevel disc desiccation and small disc osteophyte complexes. There is evidence of mild epidural lipomatosis. At T12-L1: There is no evidence of central canal stenosis or foraminal narrowing. At L1-L2: Mild disc osteophyte complex and ligamentum flavum hypertrophy as well as epidural lipomatosis results in moderate central canal stenosis. There is no significant foraminal narrowing. At L2-L3: Hypertrophy of ligamentum flavum, epidural lipomatosis and small disc bulge results in mild central canal stenosis. No intervening foraminal narrowing at this level. At L3-L4: Disc osteophyte complex, epidural lipomatosis and hypertrophy of ligamentum flavum result in severe central canal stenosis. There is mild bilateral foraminal narrowing. At L4-L5: Disc osteophyte complex, hypertrophy of ligamentum flavum and epidural lipomatosis results in moderate to severe central canal stenosis. There is mild foraminal narrowing. At L5-S1: There is moderate central canal stenosis and foraminal narrowing. CHRISTOPHE ABRAHAM Aug 26, 2017 09:20
[2017-08-26] MEDS: Topiramate 25mg tab ORAL SCH ×2 (09:49→17:51)
[2017-08-26] MEDS: Aspirin EC 81mg tab ORAL SCH (09:49)
[2017-08-26] MEDS: Heparin 5000 units/ml inj SUBQ SCH ×2 (09:52→20:44)
[2017-08-26] MEDS: Morphine Sulfate 4mg/ml Inj IVP PRN ×2 (10:11→20:10)
[2017-08-26] MEDS: VICTOZA 18 MG/3 ML SUBQ SCH (10:52)
--- NOTE | 2017-08-26 13:09 | Diagnostic Imaging Report ---
Indication: Intractable back pain Technique: Sagittal T1 fast spin echo, sagittal T2 fast echo, sagittal STIR, axial T2 fast spin echo images were obtained through the thoracic spine Comparison: Reference made to chest CT dated 08/23/2017 Findings: The vertebral body heights are preserved. The vertebral body marrow signal is normal. The disc spaces are preserved. There is fairly extensive degenerative proliferative changes of the thoracic spine, better appreciated on the recent CT At T5-6, there is high signal within the disc. There is some edema of the paraspinous soft tissues on the left, best appreciated on the sagittal STIR images. At the remaining disc levels, disc signal is either normal or demonstrates desiccation. At the T2-3 level, there is high signal within the cord which is eccentric to the right of midline. This extends for a length of about 16 mm. There is extensive posterior epidural fat in the mid thoracic spine. This results in jjed-sp-[id number] narrowing of the spinal canal in the mid thoracic spine, most notably at the T5-6 level, where the spinal canal is narrowed to about 8 mm minimum AP dimension. The cord does not appear to be frankly compressed but very little CSF is seen surrounding at this level. The right T2-3 neural foramen is nearly completely obliterated by osteophytes. The remaining neural foramina are preserved. There is no significant disc bulge or protrusion Impression: Positive for myelomalacia of indeterminate etiology at the level of T2-3. High disc signal and surrounding soft tissue edema at T5-6, presumably related to osteophyte fracture described on recent chest CT Fairly extensive epidural lipomatosis in the mid thoracic spine, most striking at the T5-6 level and causing [id number]-[id number] spinal stenosis at this level. Near complete obliteration by osteophytes of the right T2-3 neural foramen No significant disc bulge or protrusion is demonstrated. No other acute bony trauma
--- NOTE | 2017-08-26 16:42 | Cardiology Report ---
APPROVED REPORT EKG Measurement Heart [id number] Sinus rhythm with premature atrial complexes Otherwise normal ECG
[2017-08-26] MEDS: TraZODone 50mg tab ORAL SCH (20:43)
[2017-08-26] MEDS: clonazePAM 0.5mg tab ORAL SCH (20:43)
[2017-08-27] VITALS (7 sets, daily range): BP systolic 88–123; BP diastolic 55–72
--- NOTE | 2017-08-27 01:15 | Progress Note ---
DATE: 08/26/2017 CARDIOLOGY PROGRESS NOTE SUBJECTIVE: The patient still continues to have pain. Low-grade temperatures noted. Mobility is impaired. Cardiac rhythm remains sinus with rare atrial ectopics. No sustained junctional rhythm. OBJECTIVE: Good breath sounds. HEART: Regular rhythm and rate. Normal S1, S2. ABDOMEN: Soft. EXTREMITIES: Edema. Gait unsteady. Range of motion impaired due to pain. LABORATORY DATA: No new laboratories. IMPRESSION: 1. Mechanical fall. 2. History of alcohol use. 3. Thoracic vertebral fractures. 4. Intractable pain. 5. Insignificant troponin bump. 6. Clinically, insignificant cardiac arrhythmia. PLAN: 1. Recheck laboratory studies. 2. Mobilization with pain control. 3. Maintain current cardiovascular regimen. 4. Avoid tight blood pressure control and orthostasis in this clinical setting. Kam De Luna M.D. DR: ANUP JOB#: [id number] CC:
[2017-08-27] MEDS ORDERED: oxyCODONE HCL/Acetaminophen 5/325mg ORAL PRN (02:15)
[2017-08-27] MEDS: Morphine Sulfate 4mg/ml Inj IVP PRN ×4 (08:17→22:34)
--- NOTE | 2017-08-27 08:46 | General Progress Note ---
Assessment/Plan Assessment/Plan IMPRESSION S/P FALL Etoh use thoracic vertebral fractures intractable pain CKD COPD blindness diabetes abnormal rhythm elevated troponin PLAN cards recommendations noted pain control pain management noted meds monitor blood sugar follow up with consultants dc planning with [facility] impression, plan, and exam edited and reviewed in detail care discussed with RN Subjective Allergies: Coded Allergies: CODEINE (Verified Allergy, Unknown, 05/31/11) Subjective pain better overall wants to go home tuesday does not want rehab Objective Last 24 Hour Vital Signs Date Time Temp Pulse Resp B/P (MAP) Pulse Ox O2 Delivery O2 Flow Rate FiO2 08/27/17 04:00 97.9 83 18 117/66 97 Room Air 08/27/17 00:00 98.1 81 20 121/72 98 Room Air 08/26/17 20:00 98.2 79 20 121/78 98 Room Air 08/26/17 16:00 98.6 96 19 106/84 96 08/26/17 16:00 83 08/26/17 12:00 80 08/26/17 12:00 97.4 79 17 102/58 97 08/26/17 09:50 120/85 08/26/17 09:50 92 120/85 Intake and Output 08/26/17 08/27/17 19:00 07:00 Intake Total 600 ml Output Total 800 ml Balance -200 ml Intake Oral 600 ml Output Urine Total 800 ml # Voids 1 1 Height (Feet): 5 Height (Inches): 8.00 Weight (Pounds): 241 Objective WDWN NAD blind clear breath sounds bilaterally without rhonchi or wheeze [id number] without MRG NABS nontender no HSM no CCE unsteady gait pain with ROM TERESA HSU Aug 27, 2017 08:46
[2017-08-27] MEDS: Heparin 5000 units/ml inj SUBQ SCH ×2 (09:00→21:00)
[2017-08-27] MEDS ORDERED: Amitiza 24mcg cap ORAL PRN (09:00)
[2017-08-27] MEDS: Aspirin EC 81mg tab ORAL SCH (09:06)
[2017-08-27] MEDS: Topiramate 25mg tab ORAL SCH ×2 (09:06→17:54)
[2017-08-27] MEDS: VICTOZA 18 MG/3 ML SUBQ SCH (09:07)
[2017-08-27 11:17] LABS: HEMATOCRIT 28.3 % (42.0-52.0); HEMOGLOBIN 9.9 G/DL (14.2-18.0); MEAN CORPUSCULAR VOLUME 114 FL (80-99); PLATELET COUNT 132 K/UL (150-450); RED BLOOD COUNT 2.48 M/UL (4.70-6.10); RED CELL DISTRIBUTION WIDTH 14.9 % (11.6-14.8); WHITE BLOOD COUNT 5.2 K/UL (4.8-10.8)
[2017-08-27 11:38] LABS: ALANINE AMINOTRANSFERASE 23 U/L (12-78); ALBUMIN 3.2 G/DL (3.4-5.0); ALBUMIN/GLOBULIN RATIO 0.9 (1.0-2.7); ALKALINE PHOSPHATASE 30 U/L (46-116); ANION GAP 5 mmol/L (5-15); ASPARTATE AMINO TRANSFERASE 35 U/L (15-37); BILIRUBIN,TOTAL 0.4 MG/DL (0.2-1.0); BLOOD UREA NITROGEN 12 mg/dL (7-18); CALCIUM 9.2 MG/DL (8.5-10.1); CARBON DIOXIDE 26 MMOL/L (21-32); CHLORIDE 105 MMOL/L (98-107); CREATININE 1.6 MG/DL (0.55-1.30); POTASSIUM 4.3 MMOL/L (3.5-5.1); SODIUM 136 MMOL/L (136-145)
[2017-08-27] MEDS ORDERED: D5 1/2NS 1000ml IV ONE (16:18)
[2017-08-27] MEDS ORDERED: Tubing IV Secondary IV ONE (16:18)
[2017-08-27] MEDS ORDERED: NS 275ml ONE (16:18)
[2017-08-27] MEDS ORDERED: Cyclobenzaprine 10mg Tab ORAL PRN (17:15)
[2017-08-27] MEDS: clonazePAM 0.5mg tab ORAL SCH (21:23)
[2017-08-27] MEDS: TraZODone 50mg tab ORAL SCH (21:23)
[2017-08-28 00:06] VITALS: BP 105/64
--- NOTE | 2017-08-28 01:45 | Progress Note ---
DATE: 08/27/2017 CARDIOLOGY PROGRESS NOTE SUBJECTIVE: The patient continues to have pain. He has improved. He did not want to pursue rehabilitation at the facility. No shortness of breath noted. OBJECTIVE: VITAL SIGNS: Blood pressure 117/66, pulse 83, and respirations 18. NECK: Supple. LUNGS: Clear. CARDIAC: Regular. Normal S1 and S2 with a fourth heart sound. ABDOMEN: Soft. EXTREMITIES: No edema. LABORATORY DATA: White count 5.3 and hemoglobin 9.9. Potassium 4.3, BUN 12, and creatinine 1.6. Albumin 3.2. IMPRESSION: 1. Mechanical fall. 2. Thoracic vertebral fractures. 3. Intractable pain, improved. 4. Insignificant elevation of troponin with no signs of acute coronary insufficiency. 5. Transient atrial and junctional arrhythmias of no clinical significance. PLAN: 1. No additional cardiovascular studies presently indicated. 2. Continue observation on current cardiovascular medications. 3. Observe for orthostasis with pain medications. Kam De Luna M.D. DR: ANUP JOB#: [id number] CC:
[2017-08-28 04:00] VITALS: BP 112/64
[2017-08-28 08:00] VITALS: BP 102/63
[2017-08-28] MEDS: Morphine Sulfate 4mg/ml Inj IVP PRN ×3 (08:27→22:10)
[2017-08-28] MEDS: Topiramate 25mg tab ORAL SCH ×2 (08:49→17:13)
[2017-08-28] MEDS: Heparin 5000 units/ml inj SUBQ SCH ×2 (08:50→21:00)
[2017-08-28] MEDS: Aspirin EC 81mg tab ORAL SCH (08:50)
--- NOTE | 2017-08-28 08:58 | General Progress Note ---
Assessment/Plan Assessment/Plan IMPRESSION S/P FALL Etoh use thoracic vertebral fractures intractable pain CKD COPD blindness diabetes abnormal rhythm elevated troponin spinal stenosis PLAN cards recommendations noted and clearance noted pain control pain management noted meds monitor blood sugar follow up with consultants dc planning with [facility] in am impression, plan, and exam edited and reviewed in detail care discussed with RN Subjective Allergies: Coded Allergies: CODEINE (Verified Allergy, Unknown, 05/31/11) Subjective pain better overall wants to go home in am does not want rehab Objective Last 24 Hour Vital Signs Date Time Temp Pulse Resp B/P (MAP) Pulse Ox O2 Delivery O2 Flow Rate FiO2 08/28/17 08:50 Room Air 08/28/17 08:26 103/62 08/28/17 08:00 97.7 86 20 102/63 100 08/28/17 04:00 97.9 76 18 112/64 98 Room Air 08/28/17 00:06 97.9 76 18 105/64 98 08/27/17 20:54 97.9 70 18 107/62 98 08/27/17 17:54 117/67 08/27/17 16:06 98.0 79 21 117/67 98 Room Air 08/27/17 12:15 123/62 08/27/17 11:55 97.6 86 20 88/55 95 08/27/17 09:00 93/64 Intake and Output 08/27/17 08/28/17 19:00 07:00 Intake Total 960 ml 360 ml Output Total 600 ml Balance 360 ml 360 ml Intake Oral 960 ml 360 ml Output Urine Total 600 ml # Voids 1 2 Laboratory Tests 08/27/17 10:59: White Blood Count 5.2, Red Blood Count 2.48L, Hemoglobin 9.9L, Hematocrit 28.3L , Mean Corpuscular Volume 114H, Mean Corpuscular Hemoglobin 39.9H, Mean Corpuscular Hemoglobin Concent 35.0, Red Cell Distribution Width 14.9H, Platelet Count 132L, Mean Platelet Volume 5.9L, Neutrophils (%) (Auto) , Lymphocytes (%) (Auto) , Monocytes (%) (Auto) , Eosinophils (%) (Auto) , Basophils (%) (Auto) , Differential Total Cells Counted 100, Neutrophils % ( Manual) 36L, Lymphocytes % (Manual) 60H, Monocytes % (Manual) 4, Eosinophils % ( Manual) 0, Basophils % (Manual) 0, Band Neutrophils 0, Platelet Estimate DecreasedL, Platelet Morphology Normal, Hypochromasia 1+, Macrocytosis 2+, Spherocytes 1+, Sodium Level 136, Potassium Level 4.3, Chloride Level 105, Carbon Dioxide Level 26, Anion Gap 5, Blood Urea Nitrogen 12, Creatinine 1.6H, Estimat Glomerular Filtration Rate , Glucose Level 100, Calcium Level 9.2, Total Bilirubin 0.4, Aspartate Amino Transf (AST/SGOT) 35, Alanine Aminotransferase (ALT/SGPT) 23, Alkaline Phosphatase 30L, Total Protein 6.6, Albumin 3.2L, Globulin 3.4, Albumin/Globulin Ratio 0.9L Height (Feet): 5 Height (Inches): 8.00 Weight (Pounds): 241 Objective WDWN NAD blind clear breath sounds bilaterally without rhonchi or wheeze [id number] without MRG NABS nontender no HSM no CCE unsteady gait pain with ROM TERESA HSU Aug 28, 2017 08:58
[2017-08-28] MEDS: VICTOZA 18 MG/3 ML SUBQ SCH (09:37)
[2017-08-28 12:00] VITALS: BP 115/59
--- NOTE | 2017-08-28 12:26 | General Progress Note ---
Assessment/Plan Assessment/Plan (1) Lumbago (2) Lumbar sprain (3) Intractable back pain (4) S/p fall (5) Thoracic vertebral fracture (6) Lumbar spinal stenosis (7) Thoracic spinal stenosis Patient to be continued on Percocet and Morphine D/w Dr. Michaels and he concurred. Subjective Date patient seen: Aug 28, 2017 Time patient seen: 10:15 - am Allergies: Coded Allergies: CODEINE (Verified Allergy, Unknown, 05/31/11) Subjective REVIEW OF SYSTEMS: Denies rash, fever, chills, sweating, dizziness, drowsiness, sore throat, or change in his weight. No shortness of breath, palpitations, or cough. No nausea, vomiting, diarrhea, or blood in the stool or urine. No bowel or bladder incontinence. No dysuria. He is complaining of back pain and chest pain, SUBJECTIVE: Pt laying on bed showing no signs of pain or distress. MRI of thoracic spine reviewed. Pain is tolerated on the Morphine and percocet. Objective Last 24 Hour Vital Signs Date Time Temp Pulse Resp B/P (MAP) Pulse Ox O2 Delivery O2 Flow Rate FiO2 08/28/17 08:57 97.9 08/28/17 08:50 Room Air 08/28/17 08:26 103/62 08/28/17 08:00 97.7 86 20 102/63 100 08/28/17 04:00 97.9 76 18 112/64 98 Room Air 08/28/17 00:06 97.9 76 18 105/64 98 08/27/17 20:54 97.9 70 18 107/62 98 08/27/17 17:54 117/67 08/27/17 16:06 98.0 79 21 117/67 98 Room Air Intake and Output 08/27/17 08/28/17 19:00 07:00 Intake Total 960 ml 360 ml Output Total 600 ml Balance 360 ml 360 ml Intake Oral 960 ml 360 ml Output Urine Total 600 ml # Voids 1 2 Height (Feet): 5 Height (Inches): 8.00 Weight (Pounds): 241 Objective GENERAL: Alert, awake, and oriented. NECK: Range of motion is full in all directions. No tenderness to paracervical muscles. No adenopathy. LUNGS: Decreased breath sounds bilaterally. HEART: Regular. ABDOMEN: Obese. EXTREMITIES: No clubbing. No edema. NEURO: No changes. Procedure: MRI T Spine no Contrast Findings: The vertebral body heights are preserved. The vertebral body marrow signal is normal. The disc spaces are preserved. There is fairly extensive degenerative proliferative changes of the thoracic spine, better appreciated on the recent CT At T5-6, there is high signal within the disc. There is some edema of the paraspinous soft tissues on the left, best appreciated on the sagittal STIR images. At the remaining disc levels, disc signal is either normal or demonstrates desiccation. At the T2-3 level, there is high signal within the cord which is eccentric to the right of midline. This extends for a length of about 16 mm. There is extensive posterior epidural fat in the mid thoracic spine. This results in ifbs-qz-[id number] narrowing of the spinal canal in the mid thoracic spine, most notably at the T5-6 level, where the spinal canal is narrowed to about 8 mm minimum AP dimension. The cord does not appear to be frankly compressed but very little CSF is seen surrounding at this level. The right T2-3 neural foramen is nearly completely obliterated by osteophytes. The remaining neural foramina are preserved. There is no significant disc bulge or protrusion Impression: Positive for myelomalacia of indeterminate etiology at the level of T2-3. High disc signal and surrounding soft tissue edema at T5-6, presumably related to osteophyte fracture described on recent chest CT Fairly extensive epidural lipomatosis in the mid thoracic spine, most striking at the T5-6 level and causing [id number] spinal stenosis at this level. Near complete obliteration by osteophytes of the right T2-3 neural foramen No significant disc bulge or protrusion is demonstrated. No other acute bony trauma CHRISTOPHE ABRAHAM Aug 28, 2017 12:26
[2017-08-28 16:00] VITALS: BP 129/70
--- NOTE | 2017-08-28 17:45 | Progress Note ---
DATE: 08/28/2017 CARDIOLOGY PROGRESS NOTE SUBJECTIVE: The patient without new distress. Pain control is somewhat better. OBJECTIVE: VITAL SIGNS: Blood pressure 103/62, pulse 86, respiratory rate 20, and afebrile. NECK: Supple. LUNGS: Clear. CARDIAC: Regular. Normal S1 and S2. ABDOMEN: Soft. EXTREMITIES: No edema. IMPRESSION: 1. Stable cardiac rhythm. No signs of acute congestive heart failure. 2. Chronic kidney disease at baseline. 3. Single elevated troponin level of no clinical significance. 4. Mild protein-calorie malnutrition. 5. Mechanical fall with compression fractures and associated pain. PLAN: Maintain current cardiovascular regimen, but will decrease enalapril dosing in view of low range blood pressure. No resumption of amlodipine. Watch for orthostasis. Kam De Luna M.D. DR: ARETHA JOB#: [id number] CC:
[2017-08-28 19:59] VITALS: BP 143/84
[2017-08-28] MEDS: clonazePAM 0.5mg tab ORAL SCH (21:01)
[2017-08-28] MEDS: TraZODone 50mg tab ORAL SCH (21:01)
--- NOTE | 2017-08-29 03:15 | Progress Note ---
DATE: 08/28/2017 CARDIOLOGY PROGRESS NOTE SUBJECTIVE: The patient without new complaints. Pain is improved. Mobility is impaired, but adequate according to the patient to recover at home. OBJECTIVE: VITAL SIGNS: Blood pressure 103/62, pulse 86, and respirations 20. Antihypertensive regimen was decreased yesterday. NECK: Supple. LUNGS: Clear. CARDIAC: Regular. Normal S1, S2 with a fourth heart sound. ABDOMEN: Soft. EXTREMITIES: Edema. IMPRESSION: 1. Mechanical fall. 2. History of alcohol abuse. 3. Thoracic vertebral fractures with improving pain. 4. Acute myocardial ischemia of no clinical significance. 5. Diabetes, well controlled. 6. Hypertension with lower range blood pressure resulting in decrease dose of antihypertensives as noted above. PLAN: To reassess cardiovascular parameters and discharge medication regimen tomorrow prior to discharge home. Kam De Luna M.D. DR: SINGH JOB#: [id number] CC:
[2017-08-29 03:37] VITALS: BP 117/70
[2017-08-29] MEDS: Morphine Sulfate 4mg/ml Inj IVP PRN ×2 (04:19→09:26)
[2017-08-29 08:00] VITALS: BP 125/77
--- NOTE | 2017-08-29 08:07 | General Progress Note ---
Assessment/Plan Assessment/Plan IMPRESSION S/P FALL Etoh use thoracic vertebral fractures intractable pain CKD COPD blindness diabetes abnormal rhythm elevated troponin spinal stenosis PLAN able to ambulate has percocet at home pain management noted meds monitor blood sugar follow up with consultants dc home with home health impression, plan, and exam edited and reviewed in detail care discussed with RN Subjective Allergies: Coded Allergies: CODEINE (Verified Allergy, Unknown, 05/31/11) Subjective pain better overall wants to go home does not want rehab Objective Last 24 Hour Vital Signs Date Time Temp Pulse Resp B/P (MAP) Pulse Ox O2 Delivery O2 Flow Rate FiO2 08/29/17 04:49 97.0 08/29/17 03:37 97.0 78 20 117/70 98 Room Air 08/28/17 19:59 97.0 88 20 143/84 99 Room Air 08/28/17 17:13 129/70 08/28/17 16:52 Room Air 08/28/17 16:00 97.7 79 19 129/70 99 08/28/17 13:06 Room Air 08/28/17 12:00 98.1 74 20 115/59 99 08/28/17 08:50 Room Air 08/28/17 08:26 103/62 Intake and Output 08/28/17 08/29/17 19:00 07:00 Intake Total 480 ml 720 ml Balance 480 ml 720 ml Intake Oral 480 ml 720 ml # Voids 4 3 # Bowel Movements 1 Height (Feet): 5 Height (Inches): 8.00 Weight (Pounds): 241 Objective WDWN NAD blind clear breath sounds bilaterally without rhonchi or wheeze [id number] without MRG NABS nontender no HSM no CCE unsteady gait pain with ROM TERESA HSU Aug 29, 2017 08:07
--- NOTE | 2017-08-29 08:43 | General Progress Note ---
Assessment/Plan Assessment/Plan (1) Lumbago (2) Lumbar sprain (3) Intractable back pain (4) S/p fall (5) Thoracic vertebral fracture (6) Lumbar spinal stenosis (7) Thoracic spinal stenosis Patient to be continued on Percocet and Morphine An Rx for Tramadol 25mg PO 1 tab Q4-6H PRN was written in anticipation for discharge. D/w Dr. Michaels and he concurred. Subjective Date patient seen: Aug 29, 2017 Time patient seen: 07:00 - am Allergies: Coded Allergies: CODEINE (Verified Allergy, Unknown, 05/31/11) Subjective REVIEW OF SYSTEMS: Denies rash, fever, chills, sweating, dizziness, drowsiness, sore throat, or change in his weight. No shortness of breath, palpitations, or cough. No nausea, vomiting, diarrhea, or blood in the stool or urine. No bowel or bladder incontinence. No dysuria. He is complaining of back pain and chest pain, SUBJECTIVE: Pt has been in no signs of pain or distress. Pain has been reduced and being discharged as per rib bender. Objective Last 24 Hour Vital Signs Date Time Temp Pulse Resp B/P (MAP) Pulse Ox O2 Delivery O2 Flow Rate FiO2 08/29/17 08:00 97.5 78 19 125/77 98 08/29/17 04:49 97.0 08/29/17 03:37 97.0 78 20 117/70 98 Room Air 08/28/17 19:59 97.0 88 20 143/84 99 Room Air 08/28/17 17:13 129/70 08/28/17 16:52 Room Air 08/28/17 16:00 97.7 79 19 129/70 99 08/28/17 13:06 Room Air 08/28/17 12:00 98.1 74 20 115/59 99 08/28/17 08:50 Room Air Intake and Output 08/28/17 08/29/17 19:00 07:00 Intake Total 480 ml 720 ml Balance 480 ml 720 ml Intake Oral 480 ml 720 ml # Voids 4 3 # Bowel Movements 1 Height (Feet): 5 Height (Inches): 8.00 Weight (Pounds): 241 Objective GENERAL: Alert, awake, and oriented. NECK: Range of motion is full in all directions. No tenderness to paracervical muscles. No adenopathy. LUNGS: Decreased breath sounds bilaterally. HEART: Regular. ABDOMEN: Obese. EXTREMITIES: No clubbing. No edema. NEURO: No changes. CHRISTOPHE ABRAHAM Aug 29, 2017 08:43
[2017-08-29] MEDS: Heparin 5000 units/ml inj SUBQ SCH (09:00)
[2017-08-29] MEDS: Aspirin EC 81mg tab ORAL SCH (09:21)
[2017-08-29] MEDS: Topiramate 25mg tab ORAL SCH (09:21)
[2017-08-29] MEDS: VICTOZA 18 MG/3 ML SUBQ SCH (09:22)
[2017-08-29 12:00] VITALS: BP 128/74
--- NOTE | 2017-08-30 02:45 | Progress Note ---
DATE: 08/29/2017 CARDIOLOGY PROGRESS NOTE SUBJECTIVE: No chest pain. No shortness of breath. Back pain improved. Mobilization improved. The patient refusing rehab transfer. OBJECTIVE: VITAL SIGNS: Blood pressure 117/70, pulse 78, and respiratory rate 20. NECK: Supple. LUNGS: Clear. CARDIAC: Regular. Normal S1 and S2. ABDOMEN: Soft. EXTREMITIES: No edema. IMPRESSION: 1. Mechanical fall. 2. Vertebral fractures, pain controlled. 3. Chronic obstructive pulmonary disease with no active bronchospasm. 4. Elevated troponin, likely due to rhabdomyolysis from fall and not reflective of any acute cardiovascular ischemic event. 5. Hypertensive heart disease with controlled blood pressure, no signs of congestive heart failure. PLAN: 1. Stable for outpatient followup from cardiovascular standpoint. 2. Discharge medication regimen reviewed. Kam De Luna M.D. DR: Zeferino JOB#: [id number] CC:
--- NOTE | 2017-08-30 12:13 | Discharge Summary ---
Discharge Summary Hospital Course Date of Admission Aug 23, 2017 at 18:38 Date of Discharge Aug 29, 2017 at 12:30 Admitting Diagnosis encephalopathy, abdominal pain HPI Arley Calabrese is a 72 year old male who was admitted on Aug 23, 2017 at 18:38 for Encephalopathy, Abdominal Pain Hospital Course dc summary #[id number] Discharge Medications Continued Medications: Amlodipine Besylate (Norvasc) 5 Mg Tab 5 MG ORAL DAILY, TAB Aspirin (Aspirin EC) 81 Mg Tabec 81 MG PO DAILY Beclomethasone Dipropionate (Qnasl) 8.7 Gm Hfa.aer.ad 1 SPR NS BEDTIME Bimatoprost (Lumigan) 2.5 Ml Drops 1 DROP BOTH EYES BEDTIME, #2.5 ML 0 Refills Clonazepam* (Klonopin*) 0.5 Mg Tablet 0.5 MG ORAL QHS, #15 TAB 0 Refills Colesevelam Hcl (Welchol) 3.75 Gm Powd.pack 1 PKT ORAL QHS for 30 Days, PKT 0 Refills Dexlansoprazole (Dexilant) 60 Mg Cap.bp 60 MG ORAL DAILY Enalapril Maleate* (Vasotec*) 10 Mg Tablet 10 MG ORAL DAILY Escitalopram Oxalate* (Lexapro*) 20 Mg Tablet 10 MG ORAL QHS, #30 TAB 0 Refills Ipratropium/Albuterol Sulfate (Combivent Respimat Inhal [place]) 4 Gm Mist.inhal 2 PUFFS IH BID Liraglutide (Victoza 3-Víctor) 0.6 Mg/0.1 Ml Pen.injctr 0.6 MG SQ DAILY, EA 0 Refills Lubiprostone (Amitiza*) 24 Mcg Capsule 24 MCG ORAL PRN, CAP Oxycodone Hcl/Acetaminophen 5-325* (Oxycodone-Acetaminophen 5-325*) 1 Each Tablet 0.5 TAB ORAL Q6H PRN for For Pain Timolol (Betimol) 5 Ml Drops 1 DROP BOTH EYES BEDTIME Topiramate* (Topamax*) 25 Mg Tablet 25 MG ORAL TWICE A DAY, #60 TAB 0 Refills Trazodone* (Trazodone*) 150 Mg Tablet 150 MG ORAL BEDTIME, TAB Discharge Condition Upon Discharge: stable Discharge Disposition Patient was discharged to Home with Home Health(06) Discharge Diagnoses: Discharge Instructions Discharge Instructions Special Instructions I have been assigned to complete a D/C Summary on this account. I was not involved in the patient management Isabel Iverson NP ([place]te[place]) Aug 30, 2017 12:12
--- NOTE | 2017-08-31 05:00 | Discharge Summary 2 SIG ---
DATE OF ADMISSION: 08/23/2017 DATE OF DISCHARGE: 08/29/2017 REASON FOR ADMISSION: 72-year-old male with past medical history significant for COPD, diabetes, hypertension, and legal blindness, presented to the emergency department with a complaint of the upper back pain. The patient reported recurrent falls, with recent last fall . After fall he had intractable upper back pain. Pain also reported in lower chest wall region, without radiation. No shortness of breath. The pain was not controlled with outpatient medications. The patient reported some alcoholic drinks over the weekend. Serum alcohol level -66. Lactic acid-2.8. BUN- 16 and creatinine- 1.8. Troponin negative. ProBNP 1-79. The patient initially was hypotensive. EKG revealed mild sinus tachycardia, but no acute ischemic changes. The patient was given IV hydration , and blood pressure improved with IV hydration as well as the heart rate. Chest x-ray revealed no definite acute process , and CT of the chest without contrast revealed possible fractures at T5-T6 level. No acute process otherwise. No other evidence of acute bony trauma, pneumothorax, or pulmonary soft tissue contusion. Fatty liver. The patient was admitted with diagnoses of status post fall, thoracic spine fracture, lactic acidosis, dehydration, chronic kidney disease, alcohol use, COPD, blindness, and diabetes mellitus type 2. HOSPITAL COURSE: The patient was admitted. The patient was on gentle hydration. Pain specialist and product mgmt dev manager consults were requested. The patient was on cardiac monitoring. Serial troponin were monitored. The patient had one elevated troponin -0.063 and the next one was negative again. According to product mgmt dev manager, mild elevation was insignificant, likely secondary to rhabdomyolysis secondary to mechanical fall. CK - 353. The patient had evidence of paroxysmal atrial tachyarrhythmia, which resolved. Per product mgmt dev manager, no indication for anticoagulation or antiarrhythmics in this setting. He recommended to avoid tight blood pressure control and avoid medications causing orthostatic changes . Pain specialist had seen and evaluated the patient. The patient has undergone MRI of T-spine and L-spine, which revealed lumbar spinal stenosis, thoracic spinal stenosis as well as thoracic vertebral fracture. Pain management was provided. Bowel regimen was instituted. DVT prophylaxis was provided. Fall precautions were maintained. Blood sugar was managed with sliding scale of insulin and remained stable. Renal parameters and electrolytes were closely monitored. Nephrotoxics avoided and electrolytes corrected as needed. Blood pressure was managed with Vasotec and remained stable. Antiplatelet therapy with aspirin was resumed. Nutritional recommendations were implemented in the plan of care.The patient was counseled on abstinence from alcohol. The patient was stable for discharge home with home health services after pain was controlled and blood pressure stabilized. FINAL DIAGNOSES: 1. Status post mechanical fall. 2. Thoracic spine fracture. 3. Alcohol use. 4. Hypertensive heart disease with controlled blood pressure (no evidence of congestive heart failure). 5. Paroxysmal atrial tachyarrhythmia. 6. Acute myocardial ischemia. 7. Elevated troponin, likely secondary to rhabdomyolysis from fall (not reflective of any acute cardiovascular ischemic event). 8. COPD (no active bronchospasm). 9. Diabetes mellitus, type 2. 10. Chronic kidney disease. 11. Lactic acidosis, resolved. 12. Dehydration, resolved. 13. Mild protein-calorie malnutrition. 14, Blindness DISCHARGE MEDICATIONS: Please see medication reconciliation list. DISCHARGE INSTRUCTIONS: The patient is discharged home with home health services. Follow up with the primary care provider in one to two weeks. Russ Renee M.D. I have been assigned to dictate discharge summary on this account and I was not involved in the patient's management. Isabel Schmittpriscilla N.PBillie DR: BERONICA JOB#: [id number] CC: RALPH
== END 2017-08-29 12:30 | disposition home or self-care (01) | DRG 552 ==
LOC: EMR 16:15 → 2E 18:38 → EDBEDREQ 20:41 → 4W 08-26 23:33
DX: S22.008A Other fracture of unspecified thoracic vertebra, initial encounter for closed fracture (principal); N17.9 Acute kidney failure, unspecified; E46 Unspecified protein-calorie malnutrition; E11.22 Type 2 diabetes mellitus with diabetic chronic kidney disease; I47.1 Supraventricular tachycardia; I51.3 Intracardiac thrombosis, not elsewhere classified; I13.10 Hypertensive heart and chronic kidney disease without heart failure, with stage 1 through stage 4 chronic kidney disease, or unspecified chronic kidney disease; J44.9 Chronic obstructive pulmonary disease, unspecified; W01.0XXA Fall on same level from slipping, tripping and stumbling without subsequent striking against object, initial encounter; S33.5XXA Sprain of ligaments of lumbar spine, initial encounter; T79.6XXA Traumatic ischemia of muscle, initial encounter; N18.9 Chronic kidney disease, unspecified; Z72.89 Other problems related to lifestyle; M48.061 Spinal stenosis, lumbar region without neurogenic claudication; M48.04 Spinal stenosis, thoracic region; Z88.6 Allergy status to analgesic agent; Z87.891 Personal history of nicotine dependence; H54.8 Legal blindness, as defined in USA; E86.0 Dehydration; Z91.81 History of falling; B19.20 Unspecified viral hepatitis C without hepatic coma; K76.0 Fatty (change of) liver, not elsewhere classified; E86.1 Hypovolemia
CPT/HCPCS: 36415; 71045; 71250; 72146; 72148; 80053; 80329; 81003; 82248; 82550; 82553; 82962; 83605; 83690; 83735; 83880; 84443; 84484; 85007; 85025; 85610; 85730; 86710; 87040; 93005; 93306; 99285; J2405

== ENCOUNTER 2018-01-10 10:29 | Outpatient (CLI) | payer MEDICARE, OTHER ==
[~2018-01-10 10:29] MED LIST changes: +BETIMOL5 M2 BOTH EYES; +COMBIVENT RESPIM4 GM IH; +ENALAPRIL MALEA10 MG ORAL; +OXYCODONE-ACET1 EAC3 ORAL
[2018-01-10 10:49] VITALS: BP 84/46
--- NOTE | 2018-01-10 17:09 | GI Progress Note ---
Assessment/Plan Problems: (1) Anemia ICD Codes: D64.9 - Anemia, unspecified SNOMED: 309034370 (2) Weight loss ICD Codes: R63.4 - Abnormal weight loss SNOMED: 86822395, 697620667 Status: stable Status Narrative hill CT ordered hematology f/u RTC after imaging study The patient was seen and examined at bedside and all new and available data was reviewed in the patients chart. I agree with the above findings, impression and plan. (Patient seen earlier today. Signature stamp does not reflect patient encounter time.). - Graeme Smith MD Subjective Subjective GERD occasional diarrhea weight loss frmo 252 lbs to 206 lbs since May 2017. Objective Last 24 Hour Vital Signs Date Time Temp Pulse Resp B/P (MAP) Pulse Ox O2 Delivery O2 Flow Rate FiO2 01/10/18 10:49 97.4 87 20 84/46 95 97.4 General Appearance: WD/WN, no apparent distress, alert Cardiovascular: normal rate Respiratory/Chest: normal breath sounds, no respiratory distress Abdominal Exam: normal bowel sounds, non tender, soft Extremities: normal range of motion, non-tender Yancy Alves DRIED FRUIT WASHER Jan 10, 2018 17:09
== END 2018-01-10 11:01 | disposition home or self-care (01) ==
LOC: PAN 10:29
DX: D64.9 Anemia, unspecified (principal); R63.4 Abnormal weight loss; K21.9 Gastro-esophageal reflux disease without esophagitis; R19.7 Diarrhea, unspecified
CPT/HCPCS: 99212

== ENCOUNTER → 2018-01-17 | Outpatient (CLI) | payer MEDICARE, OTHER ==
--- NOTE | 2018-01-17 15:01 | Diagnostic Imaging Report ---
Indication: Chest and abdominal pain. Anemia. Weight loss Technique: Continuous helical transaxial imaging of the abdomen and pelvis was obtained from the lung bases to the pubic symphysis. No IV contrast was administered. Coronal 2-D reformats were also obtained. Study obtained in a Siemens sensation [address] The study was ordered with intravenous contrast material to be given. However pretest GFR precluded giving contrast material. Total Dose length Product (DLP): 1346.[address] Dose Index Volume (CTDIvol): 19.7 mGy Comparison: None Findings: CT chest: Lungs are essentially clear. No adenopathy is identified within the chest. Coronary and aortic calcifications are present. The axilla appear clear. No pleural effusion seen. CT abdomen pelvis: The liver is hypodense consistent with fatty infiltration. 3 or 4 small nonobstructive stones are demonstrated in the central part of the right kidney. There are several hypodensities within both kidneys, nonspecific. These are probably cysts. Aorta is mildly calcified in the upper abdomen. The appendix is normal. The urinary bladder is nondistended and not evaluated adequately on this exam. There is no free fluid or free air. There is no evidence of bowel obstruction. IMPRESSION: No findings to account for the given history of weight loss and anemia. Fatty liver Atherosclerotic disease Nonobstructive stones within the right kidney. Bilateral renal hypodensities. Statistically, these are likely cystic but not adequately evaluated without contrast material. Ultrasound evaluation is an alternative. The CT scanner at [facility] is accredited by the [employer] and the scans are performed using dose optimization techniques as appropriate to a performed exam including Automatic Exposure control.
== END | disposition home or self-care (01) ==
LOC: CAT 10:23
DX: D64.9 Anemia, unspecified (principal); R63.4 Abnormal weight loss; K76.0 Fatty (change of) liver, not elsewhere classified; I70.90 Unspecified atherosclerosis; N20.0 Calculus of kidney
CPT/HCPCS: 71250; 74176; Q9963

== ENCOUNTER 2018-02-21 11:09 | Outpatient (CLI) | payer MEDICARE, OTHER ==
[2018-02-21 15:01] VITALS: BP 92/65
--- NOTE | 2018-02-21 16:03 | GI Progress Note ---
Assessment/Plan Problems: (1) Weight loss ICD Codes: R63.4 - Abnormal weight loss SNOMED: 97151228, 133244087 (2) Anemia ICD Codes: D64.9 - Anemia, unspecified SNOMED: 094858197 Status: stable Status Narrative Seen with Dr. Smith. Assessment/Plan weight stable hill CT reviewed with patient >> unremarkable pt scheduled for EUS 03/27/18. - NPO day prior procedure explained to patient and caregiver repeat colonoscopy in 2020 The patient was seen and examined at bedside and all new and available data was reviewed in the patients chart. I agree with the above findings, impression and plan. (Patient seen earlier today. Signature stamp does not reflect patient encounter time.). - Graeme Smith MD Subjective Gastrointestinal/Abdominal: Reports: no symptoms Objective Last 24 Hour Vital Signs Date Time Temp Pulse Resp B/P (MAP) Pulse Ox O2 Delivery O2 Flow Rate FiO2 02/21/18 15:01 98.1 92 92/65 97 98.1 General Appearance: WD/WN, no apparent distress, alert Cardiovascular: normal rate Respiratory/Chest: normal breath sounds, no respiratory distress Abdominal Exam: normal bowel sounds, non tender, soft Extremities: normal range of motion, non-tender Yancy Alves FACILITY MANAGER Feb 21, 2018 16:03
== END 2018-02-21 11:41 | disposition home or self-care (01) ==
LOC: PAN 11:09
DX: R63.4 Abnormal weight loss (principal); D64.9 Anemia, unspecified
CPT/HCPCS: 99212

== ENCOUNTER 2018-03-31 09:23 | Day surgery (SDC) | payer MEDICARE, OTHER ==
[~2018-03-31] VITALS: Ht 172.7 cm; Wt 90.7 kg
[2018-03-31] VITALS (10 sets, daily range): BP systolic 90–135; BP diastolic 38–75
[~2018-03-31 09:23] MED LIST changes: +VASOTEC5 MG ORAL
--- NOTE | 2018-03-31 10:20 | Pre-Procedure Note/Attestation ---
Pre-Procedure Note/Attestation Complete Prior to Procedure Planned Procedure: not applicable Procedure Narrative: eus Indications for Procedure Pre-Operative Diagnosis: weight loss Attestation I attest that I discussed the nature of the procedure; its benefits; risks and complications; and alternatives (and the risks and benefits of such alternatives ), prior to the procedure, with the patient (or the patient's legal clearance representative). I attest that, if there was a reasonable possibility of needing a blood transfusion, the patient (or the patient's legal clearance representative) was given the [facility] standardized written summary, pursuant to the [place] Blood Safety Act ([place] Health and Safety Code # 1645, as amended). I attest that I re-evaluated the patient just prior to the surgery and that there has been no change in the patient's H&P, except as documented below: Graeme Smith MD Mar 31, 2018 10:20
--- NOTE | 2018-03-31 10:21 | Short Stay Surgery H&P ---
History of Present Illness History of Present Illness Chief Complaint weight loss HPI Arley Calabrese is a 72 year old male who was admitted on for Anemia,Abdominal Pain Patient History Allergies: Coded Allergies: CODEINE (Verified Allergy, Severe, 03/30/18) sick to stomach PAST MEDICAL HISTORY: (1) Anemia (2) Hepatitis C (3) Abdominal pain (4) Constipation (5) History of colon polyps (6) Weight loss Medication History Scheduled Aspirin (Aspirin EC), 81 MG PO DAILY, (Reported) Beclomethasone Dipropionate (Qnasl), 1 SPR NS BEDTIME, (Reported) Bimatoprost (Lumigan), 1 DROP BOTH EYES BEDTIME, (Reported) Clonazepam* (Klonopin*), 0.5 MG ORAL QHS, (Reported) Colesevelam Hcl (Welchol), 1 PKT ORAL QHS, (Reported) Dexlansoprazole (Dexilant), 60 MG ORAL DAILY, (Reported) Enalapril Maleate* (Vasotec*), Unknown Dose ORAL DAILY, (Reported) Escitalopram Oxalate* (Lexapro*), 10 MG ORAL QHS, (Reported) Ipratropium/Albuterol Sulfate (Combivent Respimat Inhal [place]), 2 PUFFS IH BID, (Reported) Liraglutide (Victoza 3-Víctor), 0.6 MG SQ DAILY, (Reported) Timolol (Betimol), 1 DROP BOTH EYES BEDTIME, (Reported) Topiramate* (Topamax*), 25 MG ORAL TWICE A DAY, (Reported) Trazodone* (Trazodone*), 150 MG ORAL BEDTIME, (Reported) Review of Systems Cardiovascular: Reports: no symptoms Respiratory: Reports: no symptoms Skeletal: Reports: no symptoms Gastrointestinal: Reports: no symptoms Genitourinary: Reports: no symptoms Neurologic: Reports: no symptoms Endocrine: Reports: no symptoms Hematologic: Reports: no symptoms Physical Exam Skin: normal HENT: normal Heart: normal Lungs: normal Abdomen: normal Extremities: normal Genitourinary: normal Plan Plan of Care eus Attestation Are the patient's medical conditions optimized for surgery? Attestation Response: yes Graeme Smith MD Mar 31, 2018 10:21
[2018-03-31] MEDS ORDERED: LR 1000ml ONE (11:00)
[2018-03-31] MEDS ORDERED: Lidocaine 1% MPF 10mg/ml 5ml ONE (11:00)
[2018-03-31] MEDS ORDERED: Propofol 200mg/20ml IV ONE (11:00)
--- NOTE | 2018-03-31 11:28 | Endoscopy Procedure Note ---
Endoscopy Procedure Note General Indication for Procedure: weight loss Procedures Performed: other - EUS Operative Findings/Diagnosis: possible pancreatitis Specimen: none Pt Tolerated Procedure Well: Yes Estimated Blood Loss: none Anesthesia Anesthesiologist: jose a Anesthesia: MAC Inserted Devices Implant(s) used?: No GI Core Measures 50 yrs or older w/o bx or poly: Not Applicable 10yrs. F/U not recommended: Not Applicable Graeme Smith MD Mar 31, 2018 11:28
[2018-03-31 11:34] LABS: EOSINOPHILS % (AUTO) 0.7 % (0.0-3.0); HEMATOCRIT 32.7 % (42.0-52.0); HEMOGLOBIN 10.9 G/DL (14.2-18.0); LYMPHOCYTES % (AUTO) 36.1 % (20.0-45.0); MEAN CORPUSCULAR VOLUME 110 FL (80-99); MONOCYTES % (AUTO) 6.4 % (1.0-10.0); NEUTROPHILS % (AUTO) 55.7 % (45.0-75.0); PLATELET COUNT 253 K/UL (150-450); RED BLOOD COUNT 2.99 M/UL (4.70-6.10); RED CELL DISTRIBUTION WIDTH 15.2 % (11.6-14.8); WHITE BLOOD COUNT 7.4 K/UL (4.8-10.8)
[2018-03-31 12:11] LABS: ANION GAP 12 mmol/L (5-15); CARBON DIOXIDE 23 MMOL/L (21-32); CHLORIDE 109 MMOL/L (98-107); SODIUM 144 MMOL/L (136-145)
--- NOTE | 2018-03-31 12:21 | Immediate Post-Op Evaluation ---
Immediate Post-Op Evalulation Immediate Post-Op Evalulation Procedure: EUS Date of Evaluation: Mar 31, 2018 Time of Evaluation: 11:35 IV Fluids: 300 Blood Pressure Systolic: 112 Blood Pressure Diastolic: 80 Pulse Rate: 90 Respiratory Rate: 14 O2 Sat by Pulse Oximetry: 98 Temperature (Fahrenheit): 98.0 Pain Score (1-10): 0 Nausea: No Vomiting: No Complications non Patient Status: awake, reacts, patent Hydration Status: adequate Drug: none Catarina Beckett CRNA Mar 31, 2018 12:21
--- NOTE | 2018-03-31 12:22 | Anethesia Preoperative Eval ---
Anesthesia Pre-op PMH/ROS General Date of Evaluation: Mar 31, 2018 Time of Evaluation: 11:00 Anesthesiologist: talib ASA Score: ASA 3 Mallampati Score Class I : Soft palate, uvula, fauces, pillars visible Class II: Soft palate, uvula, fauces visible Class III: Soft palate, base of uvula visible Class IV: Only hard plate visible Mallampati Classification: Class III Surgeon: kwaku Diagnosis: pancreatitis Surgical Procedure: EUS Anesthesia History: none Family History: no anesthesia problems Allergies: Coded Allergies: CODEINE (Verified Allergy, Severe, 03/30/18) sick to stomach Medications: see eMAR Past Medical History Cardiovascular: Reports: HTN; Denies: CAD, CA, valve dz, arrhythmia, other Pulmonary: Denies: asthma, COPD, THEO, other Gastrointestinal/Genitourinary: Reports: GERD; Denies: CRI, ESRD, other Neurologic/Psychiatric: Denies: dementia, CVA, depression/anxiety, TIA, other Endocrine: Reports: DM; Denies: hypothyroidism, steroids, other HEENT: Reports: other - legallyblind both eyes Other: obesity Anesthesia Pre-op Phys. Exam Physician Exam Last Vital Signs Date Time Temp Pulse Resp B/P (MAP) Pulse Ox O2 Delivery O2 Flow Rate FiO2 03/31/18 12:10 71 18 118/71 98 Room Air 03/31/18 12:00 97.8 97.8 Constitutional: NAD Neurologic: CN 2-12 intact Cardiovascular: RRR Respiratory: CTA Gastrointestinal: S/NT/ND Airway Exam Mallampati Classification 3 Mallampati Score: Class III MO: limited Neck: thick TMD: 1fb Dentures: upper, lower Anesthesia Pre-op A/P Labs Hematology Test 03/31/18 10:50 White Blood Count 7.4 K/UL (4.8-10.8) Red Blood Count 2.99 M/UL (4.70-6.10) L Hemoglobin 10.9 G/DL (14.2-18.0) L Hematocrit 32.7 % (42.0-52.0) L Mean Corpuscular Volume 110 FL (80-99) H Mean Corpuscular Hemoglobin 36.4 PG (27.0-31.0) H Mean Corpuscular Hemoglobin Concent 33.2 G/DL (32.0-36.0) Red Cell Distribution Width 15.2 % (11.6-14.8) H Platelet Count 253 K/UL (150-450) Mean Platelet Volume 5.7 FL (6.5-10.1) L Neutrophils (%) (Auto) 55.7 % (45.0-75.0) Lymphocytes (%) (Auto) 36.1 % (20.0-45.0) Monocytes (%) (Auto) 6.4 % (1.0-10.0) Eosinophils (%) (Auto) 0.7 % (0.0-3.0) Basophils (%) (Auto) 1.0 % (0.0-2.0) Chemistry Test 03/31/18 10:50 Sodium Level 144 MMOL/L (136-145) Potassium Level 4.0 MMOL/L (3.5-5.1) Chloride Level 109 MMOL/L (98-107) H Carbon Dioxide Level 23 MMOL/L (21-32) Anion Gap 12 mmol/L (5-15) Blood Urea Nitrogen Pending Creatinine Pending Estimat Glomerular Filtration Rate Pending Glucose Level Pending Calcium Level Pending Total Bilirubin Pending Aspartate Amino Transf (AST/SGOT) Pending Alanine Aminotransferase (ALT/SGPT) Pending Alkaline Phosphatase Pending Total Protein Pending Albumin Pending Globulin Pending Amylase Level Pending Lipase Pending Carcinoembryonic Antigen Pending CA 19-9 Antigen Pending Studies Pre-op Studies: EKG - r Risk Assessment & Plan Plan: mac Pre-Antibiotics Drug: none Catarina Beckett CRNA Mar 31, 2018 12:22
[2018-03-31 12:32] LABS: ALANINE AMINOTRANSFERASE 14 U/L (12-78); ALBUMIN 3.3 G/DL (3.4-5.0); ALBUMIN/GLOBULIN RATIO 0.9 (1.0-2.7); ALKALINE PHOSPHATASE 42 U/L (46-116); AMYLASE 42 U/L (25-115); ASPARTATE AMINO TRANSFERASE 18 U/L (15-37); BILIRUBIN,TOTAL 0.5 MG/DL (0.2-1.0); BLOOD UREA NITROGEN 6 mg/dL (7-18); CALCIUM 9.2 MG/DL (8.5-10.1); CREATININE 1.6 MG/DL (0.55-1.30)
--- NOTE | 2018-03-31 13:41 | 48 Hour Post Anesthesia Eval ---
Post Anesthesia Evaluation Procedure: EUS Date of Evaluation: Mar 31, 2018 Time of Evaluation: 13:41 Blood Pressure Systolic: 135 0: 75 Pulse Rate: 61 Respiratory Rate: 14 O2 Sat by Pulse Oximetry: 99 Airway: patent Nausea: No Vomiting: No Hydration Status: adequate Cardiopulmonary Status: stable Mental Status/LOC: patient returned to baseline Follow-up Care/Observations: na Post-Anesthesia Complications: none Follow-up care needed: N/A Catarina Beckett CRNA Mar 31, 2018 13:41
--- NOTE | 2018-03-31 20:15 | Procedure Note ---
DATE OF PROCEDURE: 03/31/2018 SURGEON: Graeme Smith M.D. ANESTHESIOLOGIST: Catarina TEJEDA. PROCEDURE: Endoscopic ultrasound. INSTRUMENT: Olympus adult EUS scope. INDICATION: Weight loss. REASON FOR PROCEDURE: The procedure, risks, benefits, and possible consequences, including hemorrhage, aspiration, perforation and infection, and alternative treatments, were explained to the patient/legal guardian by Dr. Graeme Smith and the patient/legal guardian understood and accepted these risks. DESCRIPTION OF PROCEDURE: After informed consent was obtained and the patient was adequately sedated, the EUS scope was advanced from mouth into the second portion of the duodenum. Pancreatic parenchyma was carefully examined through the gastroduodenal mucosa. Starting scanning at GE junction, celiac axis was seen without any obvious celiac axis lymphadenopathy. Left adrenal gland was seen without any adenoma. Pancreas was seen. No pancreatic duct dilatation in the body nor in the tail. There was lobulation of the pancreatic parenchyma suspicious for either pancreatitis or history of pancreatitis. Then, the scope was advanced into the antrum. We had a hard time getting into the duodenal bulb and second portion of the duodenum. After trying multiple times, one time we got into the duodenum and into the second portion of duodenum. We examined the head. There is no pancreatic duct or common bile duct dilatation at the ampulla. There was no obvious mass. We tried to pull the scope back into the duodenum and examine the body a little bit better, but unfortunately, the scope was pulled back against the antrum. After trying multiple times, we could not get the scope back in, but this the first time look, did not show any obvious mass or any pathology. SUMMARY OF FINDINGS: Questionable prior history of pancreatitis or active pancreatitis. RECOMMENDATIONS: We will send amylase and lipase for today. We will consider adding the Creon supplements three times a day with meals to see if that helps with the weight gain. We will follow the patient as an outpatient. Graeme Smith M.D. DR: RAFAEL JOB#: [id number] CC:
== END 2018-03-31 13:10 | disposition home or self-care (01) ==
LOC: GAS 09:23
DX: R63.4 Abnormal weight loss (principal); D64.9 Anemia, unspecified; R10.9 Unspecified abdominal pain; E11.9 Type 2 diabetes mellitus without complications; I10 Essential (primary) hypertension; K21.9 Gastro-esophageal reflux disease without esophagitis; H54.8 Legal blindness, as defined in USA; Z86.19 Personal history of other infectious and parasitic diseases; Z86.010 Personal history of colon polyps; Z79.82 Long term (current) use of aspirin; Z88.5 Allergy status to narcotic agent
CPT/HCPCS: 36415; 43237; 80053; 82150; 82378; 82962; 83690; 85025; 93005; J2704; 94003; 94150

== ENCOUNTER 2018-05-09 10:40 | Outpatient (CLI) | payer MEDICARE, OTHER ==
[2018-05-09 13:48] VITALS: BP 117/80
--- NOTE | 2018-05-09 15:27 | GI Progress Note ---
Assessment/Plan Problems: (1) History of colon polyps ICD Codes: Z86.010 - Personal history of colonic polyps SNOMED: 866969979 (2) Abdominal pain (3) Weight loss ICD Codes: R63.4 - Abnormal weight loss SNOMED: 69556950, 662469532 (4) Anemia ICD Codes: D64.9 - Anemia, unspecified SNOMED: 371124671 (5) Constipation ICD Codes: K59.00 - Constipation SNOMED: 32819435 (6) Diarrhea ICD Codes: R19.7 - Diarrhea, unspecified SNOMED: 75393536 Status: stable Status Narrative Seen with Dr. Smith. Assessment/Plan SUMMARY OF FINDINGS: Questionable prior history of pancreatitis or active pancreatitis. elevated CEA RECOMMENDATIONS: EGD/colonoscopy scheduled 05/26/18. - CLD & (Nulytely/Suprep/Movi-Prep) prep instructions given and acknowledged by patient. - NPO @ MN day prior procedure explained. Creon 36K TID rx zofran 8mg SL will follow with additional recs post procedure The patient was seen and examined at bedside and all new and available data was reviewed in the patients chart. I agree with the above findings, impression and plan. (Patient seen earlier today. Signature stamp does not reflect patient encounter time.). - Graeme Smith MD Subjective Gastrointestinal/Abdominal: Reports: abdominal pain, diarrhea, nausea, vomiting Subjective weight loss decrease appetite Objective Last 24 Hour Vital Signs Date Time Temp Pulse Resp B/P (MAP) Pulse Ox O2 Delivery O2 Flow Rate FiO2 05/09/18 13:48 97.5 80 20 117/80 97 97.5 General Appearance: WD/WN, no apparent distress, alert Cardiovascular: normal rate Respiratory/Chest: normal breath sounds, no respiratory distress Abdominal Exam: normal bowel sounds, non tender, soft Extremities: normal range of motion, non-tender Yancy Alves QUANTITATIVE SOFTWARE ENGINEER May 09, 2018 15:27
== END 2018-05-09 11:10 | disposition home or self-care (01) ==
LOC: PAN 10:40
DX: R10.9 Unspecified abdominal pain (principal); R63.4 Abnormal weight loss; D64.9 Anemia, unspecified; K59.00 Constipation, unspecified; R19.7 Diarrhea, unspecified; Z86.010 Personal history of colon polyps
CPT/HCPCS: 99213

== ENCOUNTER 2020-03-04 14:30 | Inpatient (IN) | payer MEDICARE, OTHER ==
[~2020-03-04] VITALS: Ht 167.6 cm; Wt 88.5 kg
[~2020-03-04 14:30] MED LIST changes: +VITAMIN D1000 UNI2 PO
--- NOTE | 2020-03-04 15:16 | NUR ---
ED Nurse Note: PT AMBUALTED TO ED C/O BURNING CHEST PAIN THAT WORSENS UPON EATING X 2 WEEKS.
[2020-03-04 15:18] VITALS: BP 120/68
--- NOTE | 2020-03-04 15:23 | Emergency Room Report ---
History of Present Illness General Chief Complaint: Chest Pain Source: Patient Present Illness HPI 74-year-old male presents to the emergency department complaining of 10 out of 10 severity pain in the epigastric region that radiates up through his throat that occurs only after eating or drinking and has been going on for the past 2 to 3 weeks. Patient reports history of GERD in the past and states that he currently takes an oral medication for which he does not know the name of. He denies cough or shortness of breath. Patient denies nausea he reports he vomited once which look like bile and that was several days ago. Patient denies constipation or diarrhea. He denies blood in the vomitus or stool. He denies fevers or chills. He has history of high blood pressure as well as being legally blind. Patient reports he did have diabetes at one point but is no longer supposed to be taking medication. Allergies: Coded Allergies: CODEINE (Verified Allergy, Severe, 03/30/18) sick to stomach COVID-19 Screening Contact w/high risk pt: No Experienced COVID-19 symptoms?: No COVID-19 Testing performed DIGITAL MEASUREMENT ADVISOR: No Patient History Past Medical History: see triage record, DM, HTN, GERD Past Surgical History: none Pertinent Family History: none Reviewed Nursing Documentation: PMH: Agreed; PSxH: Agreed Nursing Documentation-PMH Past Medical History: No History, Except For Hx Cardiac Problems: Yes Hx Hypertension: Yes Hx Pacemaker: No Hx Asthma: No Hx COPD: No Hx Diabetes: Yes Hx Cancer: No Hx Gastrointestinal Problems: Yes Hx Dialysis: No History Of Psychiatric Problem: Yes - Depression Hx Neurological Problems: Yes Hx Cerebrovascular Accident: No Hx Transient Ischemic Attacks: No Hx Dementia: No Hx Alzheimer's Disease: No Hx Parkinson's Disease: No Hx Meningitis: No Hx Encephalitis: No Hx Seizures: No Hx Epilepsy: No Hx Multiple Sclerosis: No Hx Cerebral Palsy: No Hx Amyotrophic Lat Sclerosis: No Hx Guillian-[place] Syndrome: No Hx Paralysis: No Hx Peripheral Neuropathy: No Hx Spinal Cord Injury: No Hx Head Trauma: No Hx Traumatic Brain Injury: No Hx Memory Loss: No Hx Concentration Difficulty: No Hx Speech Problem: No Hx Tremors: No Hx Vertigo: No Hx Dizziness: Yes Hx Syncope: No Hx Headaches: Yes Hx Aphasia: No Hx Dysphasia: No Hx Numbness: No Hx Weakness: Yes Hx Fatigue: No Hx Neurologic Surgery: No Hx Brain Shunt: No Review of Systems All Other Systems: negative except mentioned in HPI Physical Exam Vital Signs Date Time Temp Pulse Resp B/P (MAP) Pulse Ox O2 Delivery O2 Flow Rate FiO2 03/04/20 15:04 98.6 71 16 120/68 (85) 97 Room Air Sp02 EP Interpretation: reviewed, normal General Appearance: no apparent distress, alert, GCS 15, non-toxic Head: normocephalic, atraumatic Eyes: bilateral eye normal inspection, bilateral eye PERRL, bilateral eye other - dysconjugate gaze bilaterally ENT: hearing grossly normal, normal voice Neck: full range of motion Respiratory: chest non-tender, lungs clear, normal breath sounds, no respiratory distress, no accessory muscle use, no wheezing, speaking full sentences Cardiovascular #1: regular rate, rhythm, no edema, normal capillary refill Gastrointestinal: normal bowel sounds, soft, non-distended, no guarding, tenderness - midline epigastric TTP only Rectal: deferred Genitourinary: normal inspection, no CVA tenderness Musculoskeletal: normal range of motion, gait/station normal, non-tender Neurologic: alert, motor strength/tone normal, oriented x3, sensory intact, responsive, speech normal Psychiatric: judgement/insight normal Skin: no rash, normal color Medical Decision Making PA Attestation Dr. Castro is my supervising Physician whom patient management has been discussed with. Diagnostic Impression: Primary Impression: LUCILLE (acute kidney injury) Additional Impression: Elevated serum creatinine ER Course 74-year-old male presents to the emergency department complaining of 10 out of 10 severity pain in the epigastric region that radiates up through his throat that occurs only after eating or drinking and has been going on for the past 2 to 3 weeks. Patient reports history of GERD in the past and states that he currently takes an oral medication for which he does not know the name of. He denies cough or shortness of breath. Patient denies nausea he reports he vomited once which look like bile and that was several days ago. Patient denies constipation or diarrhea. He denies blood in the vomitus or stool. He denies fevers or chills. He has history of high blood pressure as well as being legally blind. Patient reports he did have diabetes at one point but is no longer supposed to be taking medication. Ddx considered but are not limited to Diverticulitis, acute appendicitis, diarrhea,UC, PUD, GE, pancreatitis, gallstone Vital signs: are WNL, pt. is afebrile H&PE are most consistent with Epigastric pain in a person with complicated medical history and cardiac RF's ORDERS: -CBC: WNL -, CMP: elevated Cr. 2.0 -Lipase: WNL -Troponin: 0.00 -Lactic acid: WNL -Acetone: negative ED INTERVENTIONS: -- 1000NS, - GI Cocktail: Mylanta, lidocaine -Pepcid 20mg IV -- Re-evaluation pt. reports pain to be 5/10 in severity DISPOSITION: at this time pt. will be admitted to Dr. Paniagua for LUCILLE. Dr. Paniagua agreed to admit the pt. and to continue pt. care management. Labs Test 03/04/20 15:20 03/04/20 18:00 White Blood Count 6.2 K/UL (4.8-10.8) Red Blood Count 3.20 M/UL (4.70-6.10) Hemoglobin 11.1 G/DL (14.2-18.0) Hematocrit 33.9 % (42.0-52.0) Mean Corpuscular Volume 106 FL (80-99) Mean Corpuscular Hemoglobin 34.8 PG (27.0-31.0) Mean Corpuscular Hemoglobin Concent 32.8 G/DL (32.0-36.0) Red Cell Distribution Width 14.0 % (11.6-14.8) Platelet Count 187 K/UL (150-450) Mean Platelet Volume 7.5 FL (6.5-10.1) Neutrophils (%) (Auto) 53.6 % (45.0-75.0) Lymphocytes (%) (Auto) 33.7 % (20.0-45.0) Monocytes (%) (Auto) 10.8 % (1.0-10.0) Eosinophils (%) (Auto) 0.3 % (0.0-3.0) Basophils (%) (Auto) 1.6 % (0.0-2.0) Sodium Level 141 MMOL/L (136-145) Potassium Level 3.7 MMOL/L (3.5-5.1) Chloride Level 105 MMOL/L (98-107) Carbon Dioxide Level 20 MMOL/L (21-32) Anion Gap 16 mmol/L (5-15) Blood Urea Nitrogen 16 mg/dL (7-18) Creatinine 2.0 MG/DL (0.55-1.30) Estimat Glomerular Filtration Rate 39.6 mL/min (>60) Glucose Level 144 MG/DL (74-106) Calcium Level 8.8 MG/DL (8.5-10.1) Total Bilirubin 0.3 MG/DL (0.2-1.0) Aspartate Amino Transf (AST/SGOT) 18 U/L (15-37) Alanine Aminotransferase (ALT/SGPT) 15 U/L (12-78) Alkaline Phosphatase 79 U/L (46-116) Troponin I 0.000 ng/mL (0.000-0.056) Total Protein 7.8 G/DL (6.4-8.2) Albumin 3.6 G/DL (3.4-5.0) Globulin 4.2 g/dL Albumin/Globulin Ratio 0.9 (1.0-2.7) Lipase 309 U/L (73-393) Lactic Acid Level 0.60 mmol/L (0.4-2.0) Acetone, Qualitative Negative EKG Diagnostic Results EP Interpretation: Dr. Castro Rate: normal - 78bpm Rhythm: NSR ST Segments: no acute changes ASA given to the pt in ED: No PA Scribe Text This Interpretation was scribed by ILANA Velazquez. Chest X-Ray Diagnostic Results Chest X-Ray Diagnostic Results : Chest X-Ray Ordered: Yes # of Views/Limited/Complete: 1 View Indication: Chest Pain EP Interpretation: Yes ILANA Xray: Interpretation reviewed, by supervising MD, and agrees with findings. Interpretation: no consolidation, no effusion, no pneumothorax, no acute cardiopulmonary disease Impression: No acute disease Electronically Signed by: Nikki Velazquez PA-C Last Vital Signs Date Time Temp Pulse Resp B/P (MAP) Pulse Ox O2 Delivery O2 Flow Rate FiO2 03/04/20 15:18 98.6 71 16 120/68 97 Room Air Disposition: ADMITTED INPATIENT Condition: Nikki Ibarra Mar 04, 2020 15:23
--- NOTE | 2020-03-04 15:43 | NUR ---
Note aminatanorm in EDM - 03/04/20 at 1544 by WHITNEY ER DISCHARGE NOTE: Patient is cleared to be discharged per ERMD, pt is aox4, on room air, with stable vital signs. pt was given dc and prescription instructions, pt was able to verbalize understanding, pt id band and iv site removed without complications. pt is able to ambulate with steady gait. pt took all belongings.
[2020-03-04] MEDS ORDERED: Mylanta II UD 30ml ORAL ONE (15:45)
[2020-03-04] MEDS ORDERED: Lidocaine 2% Visc 15ml soln ORAL ONE (15:45)
[2020-03-04 16:00] LABS: ANION GAP 16 mmol/L (5-15); BASOPHILS % (AUTO) 1.6 % (0.0-2.0); BLOOD UREA NITROGEN 16 mg/dL (7-18); CALCIUM 8.8 MG/DL (8.5-10.1); CARBON DIOXIDE 20 MMOL/L (21-32); CHLORIDE 105 MMOL/L (98-107); EOSINOPHILS % (AUTO) 0.3 % (0.0-3.0); HEMATOCRIT 33.9 % (42.0-52.0); HEMOGLOBIN 11.1 G/DL (14.2-18.0); LYMPHOCYTES % (AUTO) 33.7 % (20.0-45.0); MEAN CORPUSCULAR VOLUME 106 FL (80-99); MONOCYTES % (AUTO) 10.8 % (1.0-10.0); NEUTROPHILS % (AUTO) 53.6 % (45.0-75.0); PLATELET COUNT 187 K/UL (150-450); POTASSIUM 3.7 MMOL/L (3.5-5.1); SODIUM 141 MMOL/L (136-145); WHITE BLOOD COUNT 6.2 K/UL (4.8-10.8)
[2020-03-04 16:05] LABS: ALANINE AMINOTRANSFERASE 15 U/L (12-78); ALBUMIN 3.6 G/DL (3.4-5.0); ALBUMIN/GLOBULIN RATIO 0.9 (1.0-2.7); ALKALINE PHOSPHATASE 79 U/L (46-116); ASPARTATE AMINO TRANSFERASE 18 U/L (15-37); BILIRUBIN,TOTAL 0.3 MG/DL (0.2-1.0)
--- NOTE | 2020-03-04 16:20 | NUR ---
ED Nurse Note: telephone report given to chaitanya robert for continuity of care
--- NOTE | 2020-03-04 16:21 | NUR ---
ED Nurse Note: Received report from, WEN Kaur. Pt was hooked to a patient monitor, VSS, on RA, breathing even and unlabored right now; no acute distress noted. Will continue to monitor.
[2020-03-04 16:32] VITALS: BP 117/70
--- NOTE | 2020-03-04 17:22 | Diagnostic Imaging Report ---
Indication: Chest Technique: One view of the chest Comparison: 09/26/2018 Findings: Lungs and pleural spaces are clear. Heart size is normal. No significant change Impression: No acute process
--- NOTE | 2020-03-04 19:02 | NUR ---
ED Nurse Note: hand-off given to Cornelio Garcia RN for continuity of care.
[2020-03-04 19:30] VITALS: BP 123/70
--- NOTE | 2020-03-04 19:30 | NUR ---
ED Nurse Note: received patient from jakob panda rn. patient resting in bed with no acute distress. vitals stable to baseline. discussed plan of care with patient; aware of pending admission. belongings list completed with patient.
[2020-03-04 20:30] VITALS: BP 116/68
--- NOTE | 2020-03-04 20:45 | NUR ---
TRANSFER TO FLOOR: Patient transferred to [facility] 219-2 as ordered, per sanaz adame. Report given to corey tavares. patient stable for transport. transferred to unit via gurney with abdoulaye and rn. belongings and admission packet sent with patient.
[2020-03-04 21:15] VITALS: BP 142/84
--- NOTE | 2020-03-04 21:15 | NUR ---
NURSE NOTES: Report received from ED RN Cornelio Garcia. Patient arrived to unit via stretcher form ED. Patient is legally blind but is ambulatory with guiding cane. With guidance and verbal direction patient was able to ambulate to the bed safely. Patient is awake and alert x 4. Patient is noted to be on room air. Patient denies chest pain and shortness of breath. Patient reports burning sensation when eating, that causes chest pain 4/10. Patient has no other complaints at this time. Abdomen is noted to be soft and non tender. Patient was able to move bowels upon arrive to room. Urinal at bed side. Patient verbalized he will be able to use urinal if he knows where it is. Patient is noted to have 18 swapna in left forearm patent and in tact. Patient is noted to have no open skin. Patient is noted to have scab on dorsal side of right foot. Patient is noted to have skin discoloration on left elbow. Patient is requesting pain medication, medication for acid reflux, and medication to sleep. Reggie CARVER informed that he would asked Doctor Renee. Patient is placed on telemetry monitor and reported to be in sinus rhythm per night monitor Alex. Telemetry Nurse Arun will be overseeing all cardiac care for this patient. Belongings list was reviewed. Everything is accounted for. Clothes put in beside table. Patient was found to be medications that were brought down to pharmacy by Reggie CARVER. Bag # [id number]. Patient requested to have wallet, keys, and $[address] in safe. Physician Practice Coordinator Maria Del Rosario came with security to collect items. Form signed by patient and copy placed in chart. Reggie CARVER oriented the patients to his surroundings. Reggie CARVER ensured that the patient could differentiate the which button was the call light by touch. Patient was able to demonstrate that he can find the call light button by touch. Reggie CARVER educated Patient to call for help prior to getting up for patient safety Patient verbalized understanding. Bed is locked, alarmed, and in lowest position. Patient has call light in hand. Contacted Doctor Renee for admission orders, awaiting call back.
--- NOTE | 2020-03-04 21:45 | NUR ---
NURSE NOTES: Orders received from Doctor Renee via telephone. Orders placed by Reggie CARVER.
--- NOTE | 2020-03-04 22:00 | NUR ---
NURSE NOTES: Snack provided to patient. Apple sauced made the acid burn worse per patient. Patient was able to consume chicken salad sandwich and water. Patient was able to eat when food was placed in front of him and informed where the food was in front of him by using a clock as a reference.
[2020-03-04] MEDS ORDERED: Albuterol/Ipratropium 3ml neb HHN PRN (23:00)
[2020-03-04] MEDS ORDERED: LUNESTA2 MG ORAL (23:24)
[2020-03-04] MEDS ORDERED: Zolpidem 5mg tab ORAL PRN (23:30)
[2020-03-05 00:28] VITALS: BP 142/75
[2020-03-05] MEDS: clonazePAM 0.5mg tab ORAL SCH ×4 (03:00→21:22)
--- NOTE | 2020-03-05 03:04 | NUR ---
NURSE NOTES: Patient refused to take Klonopin. Patient stated that he does want to be woken up to take medications and refused to take the medication because he was going to sleep.
--- NOTE | 2020-03-05 03:15 | Consultation ---
DATE OF CONSULTATION: 03/04/2020 CARDIOLOGY CONSULTATION CONSULTING PHYSICIAN: Kam De Luna MD. REASON FOR CONSULTATION: Chest pain and arrhythmias. HISTORY OF PRESENT ILLNESS: This is a 74-year-old male, known to me from prior cardiovascular care. He presented to the emergency room with midepigastric pain radiating to his chest and throat. He notes the discomfort after eating and drinking and it has been ongoing for several weeks. He has a known history of reflux disease. The patient has not had any cough or shortness of breath, leg swelling, or palpitations. He has a known history of labile blood pressure and his EKG in the emergency room was concerning from atrial and ventricular ectopy. I have been asked to assist with cardiovascular care. The patient has had prior myocardial perfusion scan and stress test that have been negative for flow-limiting coronary disease. He has had outpatient echocardiograms revealing diastolic dysfunction with normal ejection fraction and minimal degenerative valve disease. PAST MEDICAL HISTORY: Hypertension, gastroesophageal reflux disease, insulin-requiring diabetes mellitus, blindness, glaucoma. ALLERGIES: Include codeine. MEDICATIONS: Prior to admission, reviewed and reconciled. SOCIAL HISTORY: Negative for smoking, alcohol, or substance abuse. FAMILY HISTORY: Noncontributory. REVIEW OF SYSTEMS: No known COVID-19 exposures or symptoms. No history of asthma or abnormal blood clotting. He does have a history of chronic kidney disease due to his diabetic nephropathy. There is no history of seizures. He is legally blind. He does have a history of depression. There is no history of prostate cancer or elevated PSA. He does have a history of prostatic hypertrophy. PHYSICAL EXAMINATION: VITAL SIGNS: Blood pressure 120/68, heart rate 71, respirations 16, afebrile. HEENT: Conjunctivae pink. Oropharynx clear. NECK: Supple. Jugular venous pressure normal. No bruits. LUNGS: Clear. CARDIAC: Regular rhythm and rate. Normal S1, S2 with a fourth heart sound. Point of maximum impulse sustained. ABDOMEN: Soft. Slightly tender in the midepigastric region. No guarding or rebound. EXTREMITIES: No clubbing, cyanosis. No edema. LABORATORY DATA: Troponin 0. Lactic acid normal. EKG revealed sinus rhythm with occasional atrial and ventricular ectopics. cashier gambling as above. Lipase 309. Acetone negative. White count 6.2, hemoglobin 11. BUN 16, creatinine 2, sodium 141, potassium 3.7, bicarb 20. IMPRESSION: 1. Abdominal pain, likely due to gastroesophageal reflex. 2. Hypertensive heart disease. 3. Nonsustained atrial and ventricular ectopy. 4. Metabolic acidosis. 5. Type 2 diabetes mellitus with nephropathy. PLAN: 1. Anti-platelet therapy. 2. Anti-reflux therapy. 3. Cardiac monitoring. 4. Follow up troponin. 5. Continue angiotensin-converting enzyme inhibitor therapy and up-titrate. 6. May consider beta-kana for suppression of ventricular arrhythmia. 7. We will follow up magnesium level and thyroid function and determine final medication regimen prior to discharge. Kam De Luna M.D. DR: PRAKASH JOB#: [id number] CC:
[2020-03-05 04:00] VITALS: BP 132/70
--- NOTE | 2020-03-05 04:00 | NUR ---
NURSE NOTES: EKG obtained. Shows normal sinus rhythm
--- NOTE | 2020-03-05 07:16 | NUR ---
NURSE HAND-OFF REPORT: Important Events on Shift: Patient was admission. Patient in stable condition but does have complaints of acid reflux. Patient is legally blind but is able to ambulate with assistance. patient is able to use call light and make needs known. Patient Status: stable condition. Diet:cardiac Pending Orders: none Pending Results/Labs:morning labs Pending MD notification:n/a Latest Vital Signs: Temperature 98.0 , Pulse 67 , B/P 132 /70 , Respiratory Rate 20 , O2 SAT 97 , Room Air, O2 Flow Rate . Vital Sign Comment: within normal limits. EKG Rhythm: Sinus Rhythm Rhythm change?: N MD Notified?: - MD Response: Latest Thorne Fall Score: 35 Fall Risk: Medium Risk Safety Measures: Call light Within Reach, Bed Alarm Zone 1, Side Rails Side Rails x2, Bed position Low and Locked. Fall Precautions: Yellow Socks Yellow Gown Door Sign Patient Fall Education Report given to Rose CARVER.
[2020-03-05 07:55] LABS: ALANINE AMINOTRANSFERASE 18 U/L (12-78); ALBUMIN 3.3 G/DL (3.4-5.0); ALBUMIN/GLOBULIN RATIO 0.8 (1.0-2.7); ALKALINE PHOSPHATASE 81 U/L (46-116); ANION GAP 10 mmol/L (5-15); ASPARTATE AMINO TRANSFERASE 16 U/L (15-37); BILIRUBIN,TOTAL 0.3 MG/DL (0.2-1.0); BLOOD UREA NITROGEN 14 mg/dL (7-18); CALCIUM 8.8 MG/DL (8.5-10.1); CARBON DIOXIDE 23 MMOL/L (21-32); CHLORIDE 109 MMOL/L (98-107); CREATININE 1.4 MG/DL (0.55-1.30); POTASSIUM 3.4 MMOL/L (3.5-5.1); SODIUM 142 MMOL/L (136-145)
--- NOTE | 2020-03-05 08:06 | NUR ---
NURSE NOTES: Received report from WEN Paredes. Pt is A/O x4 but legally and needs to be spoken to slowly and need explanation for every done. Pt is fall precaustions and educated to use the call light when needing to ambulate to the bathroom. Pt is stable and high fowlers eating breakfast. Pt on RA with no complaints of pain. Pt has no SOB or acute distress at this time. Pt complains of still has having acid reflux even though being given mylanta. IV on LFA 18G and saline locked. property assessment monitor showing SR of 77. Pt's bed is in low and locked position and has yellow gown on, along with yellow socks.
[2020-03-05] MEDS: TIMOLOL MALEATE 0.25% BOTH EYES SCH ×2 (08:36→17:19)
[2020-03-05] MEDS ORDERED: Topiramate 25mg tab ORAL SCH (09:00)
[2020-03-05] MEDS ORDERED: Aspirin Baby 81mg ORAL SCH (09:00)
[2020-03-05] MEDS ORDERED: Ascorbic Acid 500mg tab ORAL SCH (09:00)
[2020-03-05] MEDS ORDERED: Enalapril 2.5mg tab ORAL SCH (09:00)
[2020-03-05] MEDS ORDERED: Heparin 5000 units/ml inj SUBQ SCH (09:00)
[2020-03-05] MEDS ORDERED: Enalapril 5mg tab ORAL SCH (10:00)
[2020-03-05] MEDS: QVAR 80mcg Inh - 8.7gm INH SCH ×2 (10:16→17:19)
--- NOTE | 2020-03-05 11:45 | History and Physical Report ---
DATE OF ADMISSION: 03/04/2020 REASON FOR ADMISSION: Chest pain. HISTORY OF PRESENT ILLNESS: This is a 74-year-old male, well known to me. The patient presents with recurrent chest pain and abnormal heart rate. The patient notes some radiation up to the chest and also to the neck. The patient notes discomfort with eating. The patient had some cough, shortness of breath, and leg swelling intermittently. The patient is blind and does have care at home. The patient has had prior myocardial perfusion scan which had been negative. The patient overall comfortable at present. The patient is seen and evaluated in the emergency room and felt to require admission. The patient has had troponins, which are thus far negative. PAST MEDICAL HISTORY: Noted and reviewed. Legally blind, GERD, COPD, glaucoma, diabetes, hypertension, hypertensive heart disease, chronic pain, BPH. MEDICATIONS: Reviewed. ALLERGIES: Reviewed. SOCIAL HISTORY: Nonsmoker and nondrinker. The patient is disabled. FAMILY HISTORY: Noncontributory. REVIEW OF SYSTEMS: Otherwise negative. PHYSICAL EXAMINATION: GENERAL: The patient is an ill-appearing male of advanced age. VITAL SIGNS: Currently stable, blood pressure 132/70, pulse 67, respirations 20, and temperature 98. The patient's saturation 96% on room air. HEENT: Negative. NECK: Supple. No adenopathy. LUNGS: With moderate breath sounds. No rhonchi or wheezes. CARDIAC: S1, S2. Regular rate and rhythm without murmurs, rubs, or gallops. ABDOMEN: Soft, nontender, and nondistended. EXTREMITIES: No cyanosis or clubbing. There is mild edema. NEUROLOGIC: Grossly nonfocal, the patient, however, is blind. LABORATORY DATA: Otherwise reviewed. Serial troponins negative. EKG without any acute changes. Some ectopy noted. White count 6.2, hemoglobin 11. Sodium 141, BUN and creatinine normal. IMPRESSION: 1. Chest pain, likely noncardiac. 2. Atrial ventricular ectopy. 3. Diabetes. 4. Hypertension. 5. Hypertensive heart disease. 6. Gastroesophageal reflux disease, possible reflux related chest discomfort. RECOMMENDATIONS: 1. Supportive care. 2. Anti-platelet therapy. 3. Cardiac monitoring and monitor troponins. 4. Avoid beta-blockade with known history of COPD. 5. Monitor electrolytes and discharge home with outpatient followup pending re-evaluation. Russ Renee M.D. DR: JENNIFER JOB#: [id number] CC:
--- NOTE | 2020-03-05 16:27 | NUR ---
CASE MANAGEMENT:REVIEW FROM HOME CC: CHEST PAIN SI: LUCILLE. CHEST PAIN 98.6 71 16 120/68 97% ON RA CR+2.0 IS: IV PEPCID GI COCKTAIL CXR : TELEMETRY STATUS
--- NOTE | 2020-03-05 16:30 | Consultation ---
DATE OF CONSULTATION: 03/05/2020 CONSULTING PHYSICIAN: Graeme Smith MD. CHIEF COMPLAINT: Abdominal pain. HISTORY OF PRESENT ILLNESS: This is a very pleasant 74-year-old male. Known to me from prior admissions. His last endoscopy and colonoscopy was in 2018. Patient had some prominent fold in the duodenum. Admitted to the hospital with severe epigastric pain and vomiting. PAST MEDICAL HISTORY: 1. 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 2. Gastritis. 3. Diverticulosis. 4. Fatty liver. 5. Hepatitis C, status post treatment. 6. Hypertension. 7. Emphysema. 8. Pancreatitis. 9. Hemorrhoids. 10. Colonic polyps. 11. GERD. ALLERGIES: To codeine. MEDICATIONS: Please see medication reconciliation list. SOCIAL HISTORY: Patient denies any tobacco, alcohol, or drug abuse. FAMILY HISTORY: Noncontributory. PAST SURGICAL HISTORY: Cataract surgeries. PHYSICAL EXAMINATION: VITAL SIGNS: Temperature is 98, pulse 67, respirations 20, blood pressure is 132/70. HEENT: Normocephalic, atraumatic. Sclerae anicteric. NECK: Supple. No evidence of obvious lymphadenopathy. CARDIOVASCULAR: Regular rate and rhythm. Plus S1-S2. LUNGS: Clear to auscultation bilaterally. ABDOMEN: Positive bowel sounds. Soft. Minimal tenderness to palpation in the epigastric area. No rebound. No guarding. No peritoneal sign. EXTREMITIES: No cyanosis, no clubbing, no edema. LABORATORY DATA: White count 6.2, hemoglobin 11, hematocrit 33, platelet count is 187. Sodium 142, potassium 3.4, BUN is 14, creatinine is 1.4. Liver function grossly normal. Lipase normal. ASSESSMENT AND PLAN: This is a 74-year-old male with significant abdominal pain, which is resolving. According to , sounds like a burning, some maybe acid reflux, and worsening of his GERD symptoms, currently on Pepcid and PPI, which we will continue. He is on a cardiac diet, which we will continue. Given endoscopy and colonoscopy about 2 years ago, we are going to hold off on this if needed. His hemoglobin has been stable since prior admissions. We will follow him on daily basis and make further recommendation as needed. I want to thank, Dr. Renee for this kind referral. Graeme Octavio Smith DR: DILAN JOB#: [id number] CC: Russ Renee M.D.; Fax#: [phone]
--- NOTE | 2020-03-05 16:35 | NUR ---
NOTIFICATION MESSAGE LEFT FOR DR HSU REGARDING INPATIENT CRITERIA vs OBSERVATION CRITERIA AND HOW IT RELATES TO DISCHARGE
--- NOTE | 2020-03-05 18:18 | NUR ---
NURSE HAND-OFF REPORT: Important Events on Shift: None Patient Status: Stable Diet: Cardiac Pending Orders: [ Pending Results/Labs:[] Pending MD notification:[] Latest Vital Signs: Temperature 98.0 , Pulse 63 , B/P 115 /63 , Respiratory Rate 14 , O2 SAT 96 , Room Air, O2 Flow Rate . Vital Sign Comment: Stable EKG Rhythm: SR w/ PVC's Rhythm change?: Y MD Notified?: Raheel -Dr. Calixto MOTT Response: No New Orders Received Latest Thorne Fall Score: 35 Fall Risk: Medium Risk Safety Measures: Call light Within Reach, Bed Alarm Zone 2, Side Rails Side Rails x2, Bed position Low and Locked. Fall Precautions: Yellow Socks Yellow Gown Door Sign Patient Fall Education Report given to WEN Barnes in Med-Surg.
--- NOTE | 2020-03-05 18:31 | NUR ---
NURSE NOTES: Received report from WEN Smalls. Patient is from transferred from [facility], patient is AAO x4 but legally and needs to be spoken to slowly and need explanation, On room air, and ambulatory. Patient is fall precautions and educated to use the call light when needing to ambulate to the bathroom. IV site patent and intact. Breathing is even and unlabored, not in any acute distress noted at this time. Patient belonging checked and signed with Serina. Patient has cane and dentures at bedside. Skin is intact. Bed is locked and placed in lowest position. Call light within reach. Will continue to monitor
[2020-03-05] MEDS ORDERED: Albuterol/Ipratropium 3ml neb HHN PRN (19:00)
[2020-03-05 20:00] VITALS: BP 102/51
[2020-03-05] MEDS ORDERED: Zolpidem 5mg tab ORAL PRN (20:00)
--- NOTE | 2020-03-05 20:01 | NUR ---
HAND-OFF: Report given to WEN Garcia.
--- NOTE | 2020-03-05 20:08 | NUR ---
NURSE NOTES: Received patient awake, ambulating in room with walking stick, observed with steady gait, wearing non slip socks. IV access patent, dressing dry and intact. Assisted back to bed and all other needs attended to at this time.
[2020-03-05] MEDS: Topiramate 25mg tab ORAL SCH (21:00)
[2020-03-05] MEDS: Heparin 5000 units/ml inj SUBQ SCH (21:00)
[2020-03-05] MEDS ORDERED: TraZODone 50mg tab ORAL SCH ×2 (21:00)
[2020-03-05] MEDS: Enalapril 5mg tab ORAL SCH (21:00)
--- NOTE | 2020-03-05 21:25 | NUR ---
NURSE NOTES: Patient refused 2100 scheduled clonazepam and trazodone. Returned to [facility]. Upon returning to room, patient agreed to take scheduled clonazepam and trazodone. Miroslava from pharmacy aware.
--- NOTE | 2020-03-05 23:33 | Cardiology Progress Note ---
Subjective DATE OF SERVICE: Mar 05, 2020 Abdominal pain improved No sustained arrhythmias No Chest pressure Objective Last 24 Hour Vital Signs Date Time Temp Pulse Resp B/P (MAP) Pulse Ox O2 Delivery O2 Flow Rate FiO2 03/05/20 22:20 Room Air 03/05/20 21:00 115/63 03/05/20 19:06 72 14 97 Room Air 21 03/05/20 16:00 63 03/05/20 12:00 63 03/05/20 10:16 115/63 03/05/20 09:00 Room Air 03/05/20 08:00 67 03/05/20 07:57 68 14 96 Room Air 21 03/05/20 04:00 67 03/05/20 04:00 98.0 67 20 132/70 (90) 97 03/05/20 03:50 66 03/05/20 00:28 98.2 70 20 142/75 (97) 98 03/05/20 00:00 66 03/04/20 23:30 Room Air HEENT: normal ENT inspection RHYTHM: NSR, PVCs, PACs LUNGS: lungs clear bilaterally CARDIAC: normal rate, regular rhythm, normal S1 and S2, gallop/S4 ABDOMEN: normal bowel sounds, non tender, soft, no organomegaly, no mass EXTREMITIES: non-tender, no calf tenderness, No edema Laboratory Tests Test 03/05/20 06:35 Sodium Level 142 MMOL/L (136-145) Potassium Level 3.4 MMOL/L (3.5-5.1) L Chloride Level 109 MMOL/L (98-107) H Carbon Dioxide Level 23 MMOL/L (21-32) Anion Gap 10 mmol/L (5-15) Blood Urea Nitrogen 14 mg/dL (7-18) Creatinine 1.4 MG/DL (0.55-1.30) H Estimat Glomerular Filtration Rate 59.9 mL/min (>60) Glucose Level 118 MG/DL (74-106) H Calcium Level 8.8 MG/DL (8.5-10.1) Magnesium Level 1.7 MG/DL (1.8-2.4) L Total Bilirubin 0.3 MG/DL (0.2-1.0) Aspartate Amino Transf (AST/SGOT) 16 U/L (15-37) Alanine Aminotransferase (ALT/SGPT) 18 U/L (12-78) Alkaline Phosphatase 81 U/L (46-116) Troponin I 0.001 ng/mL (0.000-0.056) Pro-B-Type Natriuretic Peptide 171 pg/mL (0-125) H Total Protein 7.4 G/DL (6.4-8.2) Albumin 3.3 G/DL (3.4-5.0) L Globulin 4.1 g/dL Albumin/Globulin Ratio 0.8 (1.0-2.7) L Thyroid Stimulating Hormone (TSH) 1.156 uiU/mL (0.358-3.740) Assessment/Plan Assessment/Plan GERD Abdominal pain - improved Hypokalemia Hypomagnesemia Hypertension/HHD Blindness IV Mg++ Oral K+ Titrate antiHTN regimen Check 2D Echo Kam De Luna MD Mar 05, 2020 23:32
[2020-03-06] VITALS: BP 115/60
[2020-03-06] MEDS: clonazePAM 0.5mg tab ORAL SCH ×2 (03:00→08:22)
[2020-03-06 04:00] VITALS: BP 120/65
--- NOTE | 2020-03-06 07:21 | NUR ---
HAND-OFF: Report given to WEN Villafana.
[2020-03-06 08:00] VITALS: BP 123/71
--- NOTE | 2020-03-06 08:20 | General Progress Note ---
Assessment/Plan Assessment/Plan: IMPRESSION: 1. Chest pain, likely noncardiac. 2. Atrial ventricular ectopy. 3. Diabetes. 4. Hypertension. 5. Hypertensive heart disease. 6. Gastroesophageal reflux disease, possible reflux related chest discomfort. PLAN dc home resume home meds HH on dc monitor clinically consider repeat cardiac PET will discuss after dc stable for now impression, plan, and exam edited and reviewed in detail care discussed with RN Subjective Allergies: Coded Allergies: CODEINE (Verified Allergy, Severe, 03/30/18) sick to stomach Subjective stable no further work up planned Objective Last 24 Hour Vital Signs Date Time Temp Pulse Resp B/P (MAP) Pulse Ox O2 Delivery O2 Flow Rate FiO2 03/06/20 08:18 70 14 97 Room Air 21 03/06/20 08:00 98.1 75 17 123/71 (88) 96 03/06/20 04:00 97.5 86 20 120/65 (83) 95 03/06/20 00:00 98.9 68 20 115/60 (78) 97 03/05/20 22:20 Room Air 03/05/20 21:00 115/63 03/05/20 20:00 98.2 71 18 102/51 (68) 93 03/05/20 19:06 72 14 97 Room Air 21 03/05/20 16:00 63 03/05/20 12:00 63 03/05/20 10:16 115/63 03/05/20 09:00 Room Air Intake and Output 03/05/20 03/06/20 19:00 07:00 Intake Total 480 ml Balance 480 ml Intake Oral 480 ml # Voids 4 2 Height (Feet): 5 Height (Inches): 6.00 Weight (Pounds): 194 Objective GENERAL: The patient is an ill-appearing male of advanced age. NAD HEENT: Negative. NECK: Supple. No adenopathy. LUNGS: With moderate breath sounds. No rhonchi or wheezes. CARDIAC: S1, S2. Regular rate and rhythm without murmurs, rubs, or gallops. ABDOMEN: Soft, nontender, and nondistended. EXTREMITIES: No cyanosis or clubbing. There is mild edema. NEUROLOGIC: Grossly nonfocal, the patient, however, is blind. Russ Renee MD Mar 06, 2020 08:20
[2020-03-06] MEDS: Enalapril 5mg tab ORAL SCH (08:23)
[2020-03-06] MEDS: Topiramate 25mg tab ORAL SCH (08:24)
[2020-03-06] MEDS: Heparin 5000 units/ml inj SUBQ SCH (08:26)
[2020-03-06] MEDS ORDERED: TIMOLOL MALEATE 0.25% BOTH EYES SCH (09:00)
[2020-03-06] MEDS ORDERED: Aspirin Baby 81mg ORAL SCH (09:00)
[2020-03-06] MEDS ORDERED: Ascorbic Acid 500mg tab ORAL SCH (09:00)
[2020-03-06] MEDS ORDERED: QVAR 80mcg Inh - 8.7gm INH SCH (09:00)
--- NOTE | 2020-03-06 09:49 | NUR ---
*-*DISCHARGE PLANNING*-* PATIENT HAS BEEN REFERRED TO: [facility] P: [phone] Addendum: 03/06/20 at 1056 by ISRAEL ROSE LVN LVN CALL RECEIVED FROM [facility] [address] CONFIRMS PATIENTS IS ON SERVICE WITH THEIR AGENCY AND WILL RESUME CARE OF 03/07/20.
--- NOTE | 2020-03-06 11:20 | General Progress Note ---
Assessment/Plan Assessment/Plan: 1. 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 2. Gastritis. 3. Diverticulosis. 4. Fatty liver. 5. Hepatitis C, status post treatment. 6. Hypertension. 7. Emphysema. 8. Pancreatitis. 9. Hemorrhoids. 10. Colonic polyps. 11. GERD. abd pain is better stable labs pending discharge Subjective ROS Limited/Unobtainable: Yes Allergies: Coded Allergies: CODEINE (Verified Allergy, Severe, 03/30/18) sick to stomach Objective Last 24 Hour Vital Signs Date Time Temp Pulse Resp B/P (MAP) Pulse Ox O2 Delivery O2 Flow Rate FiO2 03/06/20 09:00 Room Air 03/06/20 08:23 123/71 03/06/20 08:18 70 14 97 Room Air 21 03/06/20 08:00 98.1 75 17 123/71 (88) 96 03/06/20 04:00 97.5 86 20 120/65 (83) 95 03/06/20 00:00 98.9 68 20 115/60 (78) 97 03/05/20 22:20 Room Air 03/05/20 21:00 115/63 03/05/20 20:00 98.2 71 18 102/51 (68) 93 03/05/20 19:06 72 14 97 Room Air 21 03/05/20 16:00 63 03/05/20 12:00 63 Intake and Output 03/05/20 03/06/20 19:00 07:00 Intake Total 480 ml Balance 480 ml Intake Oral 480 ml # Voids 4 2 Height (Feet): 5 Height (Inches): 6.00 Weight (Pounds): 195 General Appearance: no apparent distress EENT: normal ENT inspection Neck: supple Cardiovascular: normal rate Respiratory/Chest: decreased breath sounds Abdomen: normal bowel sounds, non tender, soft Extremities: non-tender Graeme Smith MD Mar 06, 2020 11:20
[2020-03-06 12:27] VITALS: BP 123/71
--- NOTE | 2020-03-06 12:40 | NUR ---
NURSE NOTES: pt is ready for DC. IV removed. Security and small appliance assembly supervisor witness belongings. Pharmacy meds returned to pt. Pt being picked up by Melody, friend of pt.
--- NOTE | 2020-03-07 01:37 | Cardiology Progress Note ---
Subjective DATE OF SERVICE: Mar 06, 2020 Abdominal pain improved No Chest pressure or SOB. Objective Last 24 Hour Vital Signs Date Time Temp Pulse Resp B/P (MAP) Pulse Ox O2 Delivery O2 Flow Rate FiO2 03/06/20 12:27 98.1 75 17 123/71 (88) 96 03/06/20 09:00 Room Air 03/06/20 08:23 123/71 03/06/20 08:18 70 14 97 Room Air 21 03/06/20 08:00 98.1 75 17 123/71 (88) 96 03/06/20 04:00 97.5 86 20 120/65 (83) 95 HEENT: normal ENT inspection RHYTHM: NSR, PVCs, PACs LUNGS: lungs clear bilaterally CARDIAC: normal rate, regular rhythm, normal S1 and S2, gallop/S4 ABDOMEN: normal bowel sounds, non tender, soft, no organomegaly, no mass EXTREMITIES: non-tender, no calf tenderness, No edema Assessment/Plan Assessment/Plan GERD Abdominal pain - improved Hypokalemia Hypomagnesemia Hypertension/HHD Blindness Follow up electrolytes as outpatient Continue current antiHTN regimen Consider outpatient stress test. Kam De Luna MD Mar 07, 2020 01:37
--- NOTE | 2020-03-10 12:22 | Discharge Summary ---
Discharge Summary Discharge Summary _ DATE OF ADMISSION: 03/04/2020 DATE OF DISCHARGE: 03/06/2020 DISCHARGED BY: Dr. Renee REASON FOR ADMISSION: 74 years old male with past medical history of diabetes mellitus, hypertension, hypertensive heart disease, BPH, legally blind, chronic pain, presented with recurrent chest pain and epigastric pain. \ Patient noted chest discomfort with eating. Patient also reported cough associated with shortness of breath and intermittent leg swelling. Patient had prior myocardial perfusion scan , which was negative. Laboratory work-up revealed no leukocytosis ,hemoglobin 11.1, hematocrit 33.9. Stable electrolytes. BUN 16, creatinine 2.0. Glucose 144. Troponin negative. Lactic acid 0.6. Stable LFT and lipase. EKG revealed sinus rhythm, no acute ischemic changes. Patient admitted with chest pain, likely noncardiac. CONSULTANTS: executive coordinator Dr. De Luna GI specialist Dr. Smith [facility] COURSE: Patient initially admitted to telemetry floor. Serial troponin monitored. Beta-blockers were avoided , given history of COPD . Antiplatelet therapy continued. Port Traffic Manager closely followed. Echocardiogram demonstrated preserved ejection fraction of 60%. No evidence of wall motion abnormality. Mild ventricular left ventricular hypertrophy. Serial troponin were negative . EKG revealed no acute ischemic changes. Patient was ruled out for acute myocardial infarction. Home medication continued. DVT prophylaxis provided. Potassium was replaced. Blood pressure was managed with Vasotec and remained stable . Potassium and magnesium were replaced. Port Traffic Manager recommended outpatient stress test to be repeated. GI specialist seen and evaluated patient . Pain management was addressed. Patient with known history of hepatitis C , status post treatment. Epigastric pain and chest discomfort with eating , was likely due to burning for probable acid reflux . Patient had overall worsening of his GERD symptoms. Patient started on Pepcid and PPI. Endoscopy and colonoscopy done 2 years ago , and GI specialist recommended to hold procedure at this time. Hemoglobin and hematocrit remained stable . Patient clinically stabilized and was ready for discharge home. FINAL DIAGNOSES: Chest pain , noncardiac GERD Likely reflux related chest discomfort Diabetes mellitus Hypertensive heart disease Legally blind Fatty liver Hepatitis C , status post treatment Gastritis Chronic pain DISCHARGE MEDICATIONS: See Medication Reconciliation list. DISCHARGE INSTRUCTIONS: Patient was discharged home with home health services . Follow-up with a primary care provider in 1 to 2 weeks. I have been assigned to dictate discharge summary for this account. I was not involved in the patient's management. Isabel Iverson NP Mar 10, 2020 12:22
== END 2020-03-06 13:24 | disposition home or self-care (01) | DRG 391 ==
LOC: EMR 16:20 → 2E 17:21 → EDBEDREQSVC 20:18 → EDBEDREQ 20:25 → 4E 03-05 18:10
DX: K21.9 Gastro-esophageal reflux disease without esophagitis (principal); K85.90 Acute pancreatitis without necrosis or infection, unspecified; E87.2 Acidosis; N17.9 Acute kidney failure, unspecified; Z79.4 Long term (current) use of insulin; H40.9 Unspecified glaucoma; I13.10 Hypertensive heart and chronic kidney disease without heart failure, with stage 1 through stage 4 chronic kidney disease, or unspecified chronic kidney disease; E11.22 Type 2 diabetes mellitus with diabetic chronic kidney disease; R07.89 Other chest pain; N18.9 Chronic kidney disease, unspecified; Z88.6 Allergy status to analgesic agent; I49.1 Atrial premature depolarization; H54.8 Legal blindness, as defined in USA; K76.0 Fatty (change of) liver, not elsewhere classified; Z86.19 Personal history of other infectious and parasitic diseases; J43.9 Emphysema, unspecified; K64.9 Unspecified hemorrhoids; E87.6 Hypokalemia; E83.42 Hypomagnesemia; N40.0 Benign prostatic hyperplasia without lower urinary tract symptoms; G89.29 Other chronic pain
CPT/HCPCS: 36415; 71045; 80053; 82009; 83605; 83690; 83735; 83880; 84443; 84484; 85025; 93005; 93306; 94664; 99285; J8499